=== PATIENT | male | born 1965 ===

== ENCOUNTER 2017-02-10 13:42 | Inpatient (IN) | payer OTHER ==
[2017-02-10] MEDS ORDERED: Sodium Chloride 0.9% 500 ML IV ONE (14:12)
[2017-02-10] MEDS ORDERED: Sodium Chloride 0.9% 1,000 ML ONE (14:20)
[2017-02-10 14:48] LABS: BASO # 0.1 K/uL (0.0-0.2); BASO % 0.8 % (0.0-2.0); EOS # 0.1 K/uL (0.0-0.7); EOS % 1.4 % (0.0-4.0); HEMATOCRIT 41.7 % (35.0-51.0); LYMPH # 2.2 K/uL (1.0-4.3); LYMPH % 28.1 % (20.0-40.0); MEAN CELL VOLUME 88.3 fL (80.0-94.0); MEAN CORPUSCULAR HEMOGLOBIN 31.4 pg (27.0-31.0); MEAN CORPUSCULAR HGB CONC 35.6 g/dL (33.0-37.0); MEAN PLATELET VOLUME 9.6 fL (7.2-11.7); MONO # 0.5 K/uL (0.0-0.8); NRBC % 0.1 % (0.0-2.0)
[2017-02-10 14:59] LABS: CHLORIDE 97 mmol/L (98-107)
[2017-02-10 15:00] LABS: POTASSIUM 4.2 mmol/L (3.6-5.2); SODIUM 135 mmol/L (132-148)
[2017-02-10 15:02] LABS: ALB/GLOB RATIO 1.4 (1.0-2.1); ALKALINE PHOSPHATASE 160 U/L (38-126); ALT/SGPT 28 U/L (21-72); AST/SGOT 40 U/L (17-59); BILIRUBIN,TOTAL 1.2 mg/dL (0.2-1.3); BLOOD UREA NITROGEN 17 mg/dL (9-20); CARBON DIOXIDE 26 mmol/L (22-30); GFR AFRICAN-AMERICAN > 60; TOTAL PROTEIN 7.6 g/dL (6.3-8.3)
--- NOTE | 2017-02-10 15:02 | CT ---
PROCEDURE: CT HEAD WITHOUT CONTRAST. HISTORY: Dizziness COMPARISON: None available. TECHNIQUE: Axial computed tomography images were obtained through the head/brain without intravenous contrast. Radiation dose: Total exam DLP = 967.06 mGy-cm. This CT exam was performed using one or more of the following dose reduction techniques: Automated exposure control, adjustment of the mA and/or kV according to patient size, and/or use of iterative reconstruction technique. FINDINGS: HEMORRHAGE: No intracranial hemorrhage. BRAIN: No mass effect or edema. Evidence of old right occipital infarct. Small encephalomalacia ruffin region in the right parietal lobe the sequela of old infarction. VENTRICLES: Unremarkable. No hydrocephalus. CALVARIUM: Unremarkable. PARANASAL SINUSES: Unremarkable as visualized. No significant inflammatory changes. MASTOID AIR CELLS: Unremarkable as visualized. No inflammatory changes. OTHER FINDINGS: None. IMPRESSION: No acute intracranial abnormalities. No significant findings to account for the clinical presentation. 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
[2017-02-10 15:03] LABS: CALCIUM 8.6 mg/dl (8.6-10.4); GLUCOSE,RANDOM 366 mg/dL (75-110)
[2017-02-10] MEDS ORDERED: Aspirin 325 mg EC Tablets PO STA (15:38)
--- NOTE | 2017-02-10 16:02 | C.PDOC ---
Time Seen by Provider: 02/10/17 13:56 Chief Complaint (Nursing): Dizziness/Lightheaded History Per: Patient Onset/Duration Of Symptoms: Days (2-3) Current Symptoms Are (Timing): Still Present Fall Associated With With Symptoms: No Severity: Moderate Additional History Per: Prior Records - Symptoms Of CVA Associated Symptoms: Decreased Ability To Walk Character Of Deficits: Left: Sensory Loss (?), Arm: Sensory Loss Recent Aspirin Use: No Current Coumadin Use?: No Recent Head Trauma: No Past Medical History Reviewed: Historical Data, Nursing Documentation, Vital Signs Vital Signs: Last Vital Signs Temp 98.2 F 02/10/17 13:46 Pulse 69 02/10/17 13:46 Resp 20 02/10/17 13:46 BP 153/74 H 02/10/17 13:46 Pulse Ox 98 02/10/17 16:02 - Medical History PMH: Diabetes, HTN, Hypercholesterolemia Surgical History: No Surg Hx Family History: States: Unknown Family Hx - Social History Hx Alcohol Use: Yes Hx Substance Use: No Review Of Systems Except As Marked, All Systems Reviewed And Found Negative. Constitutional: Negative for: Fever, Weakness Eyes: Positive for: Vision Change (?) Cardiovascular: Negative for: Chest Pain Respiratory: Negative for: Shortness of Breath Gastrointestinal: Negative for: Vomiting, Abdominal Pain Musculoskeletal: Negative for: Neck Pain, Back Pain Skin: Negative for: Rash Neurological: Positive for: Incoordination, Headache, Dizziness. Negative for: Change in Speech, Seizures, Altered Mental Status Physical Exam - Physical Exam Appears: Non-toxic, No Acute Distress Skin: Normal Color, Warm, Dry, No Rash Head: Atraumatic, Normacephalic Eye(s): bilateral: PERRL, EOMI Ear(s): Bilateral: Normal Neck: Normal ROM, Supple Cardiovascular: Rhythm Regular Respiratory: Normal Breath Sounds, No Accessory Muscle Use Gastrointestinal/Abdominal: Soft, No Tenderness Extremity: Normal ROM Neurological/Psych: Oriented x3, Normal Speech, Normal Cognition, Normal Motor, No Normal Sensation (decreased sensation in LUE compared to right) Gait: Unsteady ED Course And Treatment - Laboratory Results Result Diagrams: 02/10/17 14:33 02/10/17 14:33 ECG: Interpreted By Me, Viewed By Me ECG Rhythm: Sinus Rhythm ECG Interpretation: No Acute Changes Rate From EC O2 Sat by Pulse Oximetry: 98 Pulse Ox Interpretation: Normal - CT Scan/US CT head Other Rad Studies (CT/US): Read By Radiologist, Radiology Report Reviewed CT/US Interpretation: IMPRESSION: No acute intracranial abnormalities. No significant findings to account for the clinical presentation. 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 - Physician Consult Information Physician Contacted: Abelardo Ventura (Neuro) Outcome Of Conversation: He wants pt to be admitted to the hospital for further evaluation and treatment. NIHSS Stroke Scale - Date/Time Evaluation Performed Date Performed: 02/10/17 When Was NIHSS Performed: Baseline - How Severe is the Stoke Level of Consciousness: 0=Alert LOC to Questions: 0=Both comments correct Best Gaze: 0=Normal Visual: 0=No visual loss Facial: 0=Normal Motor Arm - Left: 0=No drift Motor Arm - Right: 0=No drift Motor Leg - Left: 0=No drift Motor Leg - Right: 0=No drift Limb Ataxia: 0=Absent Sensory: 1=Mild to moderate loss Best Language: 0=No aphasia Dysarthia: 0=Normal articulation Extinction & Inattention (Neglect): 0=Normal, no object Severity Of Stroke: 1-4= Minor Stroke Progress - Interventions Interventions:: Observation, Intravenous fluid - Medications Administered Oral: Aspirin, Other (Meclizine) - Data Reviewed Data Reviewed: Lab, Diagnostic imaging, EKG, Old records - Patient Status Patient status: Partially improved - Continuity of Care Discussed patient case with:: Patient, ED Nurse, On-call PMD-pt unassigned Discussed pt. case with [facility] consultant/specialty: Neurology - Patient Plan Patient Plan: Admission, Telemetry rTPA Inclusion/Exclusion - Inclusion Criteria for Altepase Patient is 18 years or Older: Yes The Clinical Diagnosis of Ischemic Stroke That is Causing a Potentially Disabling Neurological Deficit: Yes Time of Onset is Well Established to be Less Than 270 Minute Before Treatment Would Begin: No Risk/Benefit Discussed With Patient/Family Member Present: No Disposition Discussed With : Chandu Metz Comment: He accepted pt on hospitalist service. Doctor Will See Patient In The: Hospital Counseled Patient/Family Regarding: Studies Performed, Diagnosis - Disposition Disposition: HOSPITALIZED Disposition Time: 16:15 Condition: FAIR - Clinical Impression Clinical Impression: Occipital infarction, Infarction of parietal lobe
[2017-02-10 16:08] LABS: CHOLESTEROL 218 mg/dL (0-199)
--- NOTE | 2017-02-10 16:20 | CP.PCM.HP ---
<Jaclyn Wallis - Last Filed: 02/10/17 18:12> History of Present Illness - History of Present Illness History of Present Illness: CC: I'm losing my mind HPI: 51M with PMHx HTN, DM, hyperlipidemia presenting with unsteadiness and difficulty coordinating for 3 days. Patient states that these symptoms began randomly and he noticed it especially when driving or trying to lift something from the floor. When driving he would notice that when trying to turn on the blinker he would have a difficult time differentiating how to turn on left and right turn signals and when trying to lift objects from the floor he would often miss. He stated nothing made this better/worse. He denied any falls but reported feeling dizzy at times. He also reported one episode when he had a headache that was located on the top of his head and rated 5/10 which was intermittent. He denied any confusion but felt like his head was in the clouds. This is the first time he had such a sequale of symptoms. Patient also denied weakness, chest pain, palpitations, SOB, cough, abdominal pain, nausea, vomiting , bowel/bladder complaints, pain/swelling in legs b/l. He denied travel history and sick contacts. PMHx: HTN, DM2, hyperlipidemia PSHx: denies Meds: doesn't know meds Allergies: NKDA Soc Hx: denies tobacco abuse and drug abuse. Drinks occassionally socially. 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 FamHx: mother CVA. No heart disease/cancer in family ROS: admits to headache, dizziness. denies chest pain, palpitations, SOB, cough , abdominal pain, nausea, vomiting, bowel/bladder complaints, pain/swelling in legs b/l Present on Admission - Present on Admission Any Indicators Present on Admission: No Review of Systems - Constitutional Constitutional: As Per HPI. absent: Chills, Fever, Weakness - EENT Eyes: As Per HPI. absent: Change in Vision Ears: As Per HPI, Disequilibrium, Dizziness. absent: Tinnitus Nose/Mouth/Throat: As Per HPI. absent: Dysphagia, Sore Throat - Cardiovascular Cardiovascular: As Per HPI. absent: Chest Pain, Dyspnea, Edema, Palpitations - Respiratory Respiratory: As Per HPI. absent: Cough, Dyspnea on Exertion, Wheezing, Chest Congestion - Gastrointestinal Gastrointestinal: As Per HPI. absent: Abdominal Pain, Constipation, Diarrhea, Nausea, Vomiting - Genitourinary Genitourinary: As Per HPI. absent: Dysuria, Hematuria, Pyuria - Musculoskeletal Musculoskeletal: As Per HPI. absent: Numbness, Tingling - Integumentary Integumentary: As Per HPI. absent: Rash - Neurological Neurological: As Per HPI, Abnormal Gait, Disequilibrium, Dizziness, Headaches, Lack of Coordination. absent: Abnormal Hearing, Abnormal Movements, Abnormal Speech, Burning Sensations, Confusion, Numbness, Focal Weakness, Frequent Falls , Loss of Vision, Syncope, Tingling, Weakness, Other Visual Disturbances - Psychiatric Psychiatric: As Per HPI. absent: Anxiety, Depression - Endocrine Endocrine: As Per HPI. absent: Palpitations, Polydipsia, Polyphagia, Polyuria - Hematologic/Lymphatic Hematologic: As Per HPI. absent: Easy Bleeding, Easy Bruising, Lymphadenopathy Past Patient History - Past Social History Smoking Status: Never Smoked - CARDIAC Hx Hypercholesterolemia: Yes Hx Hypertension: Yes - ENDOCRINE/METABOLIC Hx Diabetes Mellitus Type 2: Yes - PSYCHIATRIC Hx Substance Use: No Meds Allergies/Adverse Reactions: Allergies Allergy/AdvReac Type Severity Reaction Status Date / Time No Known Allergies Allergy Unverified 02/10/17 13:48 Physical Exam - Constitutional Appears: Non-toxic, No Acute Distress - Head Exam Head Exam: ATRAUMATIC, NORMAL INSPECTION, NORMOCEPHALIC - Eye Exam Eye Exam: EOMI, Normal appearance, PERRL. absent: Conjunctival injection, Scleral icterus Pupil Exam: NORMAL ACCOMODATION - ENT Exam ENT Exam: Mucous Membranes Moist - Neck Exam Neck exam: Positive for: Full Rom, Normal Inspection. Negative for: Lymphadenopathy, Tenderness, Thyromegaly - Respiratory Exam Respiratory Exam: Clear to Auscultation Bilateral, NORMAL BREATHING PATTERN. absent: Accessory Muscle Use, Rales, Rhonchi, Wheezes, Respiratory Distress - Cardiovascular Exam Cardiovascular Exam: REGULAR RHYTHM, RRR, +S1, +S2. absent: Systolic Murmur - GI/Abdominal Exam GI & Abdominal Exam: Normal Bowel Sounds, Soft. absent: Firm, Guarding, Rigid, Tenderness - Rectal Exam Rectal Exam: Deferred - Extremities Exam Extremities exam: Positive for: normal capillary refill, normal inspection, pedal pulses present. Negative for: pedal edema, tenderness - Back Exam Back exam: NORMAL INSPECTION. absent: paraspinal tenderness, rash noted - Neurological Exam Neurological exam: Alert, CN II-XII Intact, Oriented x3 - Psychiatric Exam Psychiatric exam: Normal Affect, Normal Mood - Skin Skin Exam: Dry, Intact, Normal Color, Warm Results - Vital Signs Recent Vital Signs: Last Vital Signs Temp 98.2 F 02/10/17 13:46 Pulse 69 02/10/17 13:46 Resp 20 02/10/17 13:46 BP 153/74 H 02/10/17 13:46 Pulse Ox 98 02/10/17 16:17 - Labs Result Diagrams: 02/10/17 14:33 02/10/17 14:33 Labs: Laboratory Results - last 24 hr 02/10/17 02/10/17 02/10/17 14:33 14:33 15:53 WBC 8.0 RBC 4.72 Hgb 14.8 Hct 41.7 MCV 88.3 MCH 31.4 H MCHC 35.6 RDW 12.0 Plt Count 223 MPV 9.6 Neut % (Auto) 63.7 Lymph % (Auto) 28.1 [place] % (Auto) 6.0 Eos % (Auto) 1.4 Baso % (Auto) 0.8 Neut # 5.1 Lymph # 2.2 [place] # 0.5 Eos # 0.1 Baso # 0.1 PT 11.7 INR 1.0 APTT 28 Sodium 135 Potassium 4.2 Chloride 97 L Carbon Dioxide 26 Anion Gap 16 BUN 17 Creatinine 0.7 L Est GFR ( Amer) > 60 Est GFR (Non-Af Amer) > 60 Random Glucose 366 H Calcium 8.6 Total Bilirubin 1.2 AST 40 ALT 28 Alkaline Phosphatase 160 H Troponin I 0.0200 Total Protein 7.6 Albumin 4.5 Globulin 3.2 Albumin/Globulin Ratio 1.4 Triglycerides Cholesterol HDL Cholesterol 02/10/17 15:53 WBC RBC Hgb Hct MCV MCH MCHC RDW Plt Count MPV Neut % (Auto) Lymph % (Auto) [place] % (Auto) Eos % (Auto) Baso % (Auto) Neut # Lymph # [place] # Eos # Baso # PT INR APTT Sodium Potassium Chloride Carbon Dioxide Anion Gap BUN Creatinine Est GFR ( Amer) Est GFR (Non-Af Amer) Random Glucose Calcium Total Bilirubin AST ALT Alkaline Phosphatase Troponin I Total Protein Albumin Globulin Albumin/Globulin Ratio Triglycerides 254 H Cholesterol 218 H HDL Cholesterol 47 Assessment & Plan - Assessment and Plan (Free Text) Assessment: 51 year [facility], DM, hypercholesterolemia presents with unsteadiness for 3 days Plan: Acute vs subacute CVA -Likely Ischemic stroke likely secondary to emboli -TELE admission -CT head: no acute intracranial abnl; no significant findings to account for clinical presentation; old infarcts R occipital lobe, R parietal lobe -ASA 81mg po daily -Crestor 10mg po hs -f/u Echo with bubble study -f/u MRI brain w/o contrast -f/u MRA head/neck w/o contrast -PT/OT -Neuro checks -Fall Risk -Heart healthy diet -Dr. Ventura neurology on board Hx of HTN -hold meds for now -Monitor Hx of DM -Accucheck -RISS Hx of Hypercholesterolemia -Crestor 10mg po hs PPX -Pepcid 20mg po bid -Heparin 5000U SC q12 -SCDs -PT/OT -Neuro checks -Fall Risk -Heart healthy diet Plan discussed with Dr. Dalton Wallis PGY1 <Gladis Hoffman V - Last Filed: 02/10/17 20:34> Results - Vital Signs Recent Vital Signs: Last Vital Signs Temp 98.7 F 02/10/17 18:40 Pulse 67 02/10/17 18:40 Resp 20 02/10/17 18:40 BP 147/93 H 02/10/17 18:40 Pulse Ox 98 02/10/17 18:40 - Labs Result Diagrams: 02/10/17 14:33 02/10/17 14:33 Attending/Attestation - Attestation I have personally seen and examined this patient.: Yes I have fully participated in the care of the patient.: Yes I have reviewed all pertinent clinical information: Yes Notes (Text): Patient seen, examined, and case discussed with day-time resident in [facility] Bed 9 accompanied by friend, patient permits to talk about his medical history in front of his friend. patient reports 3 days ago, he noticed something wrong with his hand. 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 Patient denies dropping items. Patient also reports headache about two days ago, which prompted him to take a Advil. Patient reports he comes now to the hospital but he was working before. Patient denies facial weakness, slurring speech, denies weakness, denies numbness, denies tingling, denies bowel/bladder incontinence. Neurology (Dr. Ventura) on case-->help appreciated Cardiology (Dr. Wise) on case-->further recommendations Will order for hypercoaguabity workup Monitor on telemetry Patient received Aspirin 325mg PO in the Ed. Assessment/Plan 1) CVA -Likely Ischemic stroke likely secondary to emboli -TELE admission -CT head: no acute intracranial abnl; no significant findings to account for clinical presentation; old infarcts R occipital lobe, R parietal lobe -ASA 81mg po daily -Crestor 10mg po hs -f/u Echo with bubble study -f/u MRI brain w/o contrast -f/u MRA head/neck w/o contrast -PT/OT eval -Neuro checks -Fall Risk -Heart healthy diet -Dr. Ventura neurology on board-->help appreciated -Dr. Wise cardiology on board-->help appreciated -JED and EKGs ordered 2) Hypertension -Lisinopril 5mg PO daily -Monitor 3)Diabetes type 2 -Accuchecks QAC and HS -RISS -hgba1c, and Lipid panel 4) Hx of Hypercholesterolemia -Crestor 10mg po hs -lipid panel 5) PPX -Pepcid 20mg po bid -Heparin 5000U SC q12 -SCDs -PT/OT eval -Neuro checks -Fall Risk -Heart healthy diet
--- NOTE | 2017-02-10 16:41 | CP.PCM.CON ---
History of Present Illness - History of Present Illness History of Present Illness: Mr. Rivas is a 51-year-old man with a past medical history of DM, HTN, who states that for the last several days he has been feeling more unsteady and some difficulty with coordination. He denies headache, nausea, visual changes, other weakness or sensory changes. He does not have any dizziness or vertigo and has not had any recent illnesses. Review of Systems - Review of Systems All systems: reviewed and no additional remarkable complaints except Past Patient History - Past Social History Smoking Status: Never Smoked - CARDIAC Hx Hypercholesterolemia: Yes Hx Hypertension: Yes - ENDOCRINE/METABOLIC Hx Diabetes Mellitus Type 2: Yes - PSYCHIATRIC Hx Substance Use: No Meds Allergies/Adverse Reactions: Allergies Allergy/AdvReac Type Severity Reaction Status Date / Time No Known Allergies Allergy Unverified 02/10/17 13:48 Physical Exam - Constitutional Appears: Well - Head Exam Head Exam: ATRAUMATIC, NORMAL INSPECTION, NORMOCEPHALIC - Eye Exam Eye Exam: EOMI, Normal appearance, PERRL - ENT Exam ENT Exam: Mucous Membranes Moist, Normal Exam - Neck Exam Neck exam: Positive for: Normal Inspection - Respiratory Exam Respiratory Exam: Clear to Auscultation Bilateral, NORMAL BREATHING PATTERN - Cardiovascular Exam Cardiovascular Exam: REGULAR RHYTHM, +S1, +S2 - GI/Abdominal Exam GI & Abdominal Exam: Normal Bowel Sounds, Soft. absent: Tenderness - Neurological Exam Neurological exam: Alert, CN II-XII Intact, Normal Gait, Oriented x3, Reflexes Normal - Expanded Neurological Exam Expanded Patient oriented to: person, place, time Cranial nerves: EOM's Intact: Normal, Nystagmus: Normal Cerebellar Function: Finger to Nose: Abnormal Right, Heel to [place]: Abnormal Right Upper motor neuron: Babinski Sign: Normal Sensory exam: Lower Extremity Light Touch: Normal, Lower Extremity Pin Prick: Normal, Upper Extremity Light Touch: Normal, Upper Extremity Pin Prick: Normal Neuro motor strength exam: Left Upper Extremity: 5, Right Upper Extremity: 5, Left Lower Extremity: 5, Right Lower Extremity: 5 DTR: Bicep Left: 3+, Bicep Right: 2+, Brachioradialis Left: 3+, Brachioradialis Right: 2+, Patellar Left: 3+, Patellar Right: 2+ - Psychiatric Exam Psychiatric exam: Normal Affect, Normal Mood - Skin Skin Exam: Dry, Intact, Normal Color, Warm Results - Vital Signs Recent Vital Signs: Last Vital Signs Temp 98.2 F 02/10/17 13:46 Pulse 69 02/10/17 13:46 Resp 20 02/10/17 13:46 BP 153/74 H 02/10/17 13:46 Pulse Ox 98 02/10/17 16:17 - Labs Result Diagrams: 02/10/17 14:33 02/10/17 14:33 - Imaging and Cardiology CT scan - head Status: Image reviewed by me, Report reviewed by me (Chronic right occipital and parietal infarcts. Parts of the parietal infarct appear to be slightly more recent than the occipital region, but it is diffuclt to determine. There is also a chronic left cerebellar.) Assessment & Plan (1) Ischemic stroke Assessment and Plan: Based on the history and CT findings, the patient has likely had infarcts at different times. The plan is to admit the patient and complete a work-up and treatment for stroke. Start aspirin 81 mg daily, lipid panel and start high dose statin to maintain LDL<100, MRI brain without contrast MRA head/neck without contrast, echocardiogram with bubble study, telemetry, PT/OT, DVT Px. Status: Acute Priority: High
[2017-02-10] MEDS: (Novolog) Insulin Aspart, Recombinant 100 u/ml 10 ml vial SC SCH (22:00)
--- NOTE | 2017-02-11 06:54 | CP.PCM.CON ---
History of Present Illness - History of Present Illness History of Present Illness: Pt with chest discomfort bp elevated no sob Past Patient History - Past Social History Smoking Status: Never Smoked - CARDIAC Hx Hypercholesterolemia: Yes Hx Hypertension: Yes - ENDOCRINE/METABOLIC Hx Diabetes Mellitus Type 2: Yes - MUSCULOSKELETAL/RHEUMATOLOGICAL Hx Falls: No - PSYCHIATRIC Hx Substance Use: No Meds Home Medications: Home Medication List Medication Instructions Recorded Confirmed Type Aspirin [Aspirin Chewable] 81 mg PO DAILY #30 02/14/17 Rx Lisinopril [Zestril] 5 mg PO DAILY #30 tab 02/14/17 Rx MetFORMIN [glucoPHAGE] 1,000 mg PO BID #60 tab 02/14/17 Rx Rosuvastatin Calcium [Crestor] 40 mg PO HS #30 tab 02/14/17 Rx glyBURIDE [Micronase] 2.5 mg PO DAILY #30 tab 02/14/17 Rx Allergies/Adverse Reactions: Allergies Allergy/AdvReac Type Severity Reaction Status Date / Time No Known Allergies Allergy Unverified 02/10/17 13:48 - Medications Medications: Current Medications Aspirin (Aspirin Chewable) 81 mg PO DAILY [facility] Famotidine (Pepcid) 20 mg PO BID [facility] Last Admin: 02/10/17 18:33 Dose: 20 mg Heparin Sodium (Porcine) (Heparin) 5,000 units SC Q12 [facility] Last Admin: 02/10/17 21:22 Dose: 5,000 units Insulin Aspart (Novolog) 0 unit SC ACHS [facility] PRN Reason: Protocol Last Admin: 02/10/17 22:00 Dose: Not Given Lisinopril (Zestril) 5 mg PO DAILY [facility] Rosuvastatin Calcium (Crestor) 10 mg PO HS [facility] Last Admin: 02/10/17 21:21 Dose: 10 mg Results - Vital Signs Recent Vital Signs: Last Vital Signs Temp 97.5 F L 02/10/17 23:25 Pulse 60 02/11/17 02:31 Resp 20 02/10/17 23:25 BP 124/76 02/10/17 23:25 Pulse Ox 96 02/10/17 23:25 - Labs Result Diagrams: 02/14/17 07:58 02/14/17 07:58 Labs: Laboratory Results - last 24 hr 02/10/17 02/10/17 02/10/17 18:31 21:00 21:10 POC Glucose (mg/dL) 277 H 329 H Total Creatine Kinase 73 CK-MB (Mass) 0.75 Troponin I, Quant 0.0190 02/11/17 02/11/17 02:13 06:14 POC Glucose (mg/dL) 244 H Total Creatine Kinase 75 CK-MB (Mass) 0.72 Troponin I, Quant 0.0290 Assessment & Plan (1) CVA (cerebral vascular accident) Assessment and Plan: neuro follow cva bp control Status: Acute (2) HTN (hypertension) Status: Chronic
[2017-02-11 07:58] LABS: CHLORIDE 99 mmol/L (98-107); SODIUM 135 mmol/L (132-148)
[2017-02-11 07:59] LABS: POTASSIUM 4.1 mmol/L (3.6-5.2)
[2017-02-11 08:00] LABS: BILIRUBIN,TOTAL 1.3 mg/dL (0.2-1.3); GFR AFRICAN-AMERICAN > 60
[2017-02-11 08:01] LABS: ALB/GLOB RATIO 1.2 (1.0-2.1); ALKALINE PHOSPHATASE 130 U/L (38-126); ALT/SGPT 25 U/L (21-72); AST/SGOT 35 U/L (17-59); BASO # 0.1 K/uL (0.0-0.2); BASO % 1.1 % (0.0-2.0); BLOOD UREA NITROGEN 17 mg/dL (9-20); CARBON DIOXIDE 24 mmol/L (22-30); EOS # 0.4 K/uL (0.0-0.7); EOS % 5.6 % (0.0-4.0); GLUCOSE,RANDOM 243 mg/dL (75-110); HEMATOCRIT 41.1 % (35.0-51.0); LYMPH # 2.1 K/uL (1.0-4.3); LYMPH % 33.4 % (20.0-40.0); MEAN CELL VOLUME 88.4 fL (80.0-94.0); MEAN CORPUSCULAR HEMOGLOBIN 31.1 pg (27.0-31.0); MEAN CORPUSCULAR HGB CONC 35.2 g/dL (33.0-37.0); MEAN PLATELET VOLUME 9.7 fL (7.2-11.7); MONO # 0.5 K/uL (0.0-0.8); MONO % 7.2 % (0.0-10.0); PHOSPHOROUS 3.4 mg/dL (2.5-4.5); RED CELL DISTRIBUTION WIDTH 12.3 % (11.5-14.5); TOTAL PROTEIN 7.1 g/dL (6.3-8.3); WHITE BLOOD COUNT 6.4 K/uL (4.8-10.8)
[2017-02-11 08:02] LABS: CALCIUM 8.4 mg/dl (8.6-10.4); MAGNESIUM 1.8 mg/dL (1.6-2.3)
--- NOTE | 2017-02-11 08:03 | CP.PCM.PN ---
<Jaclyn Wallis - Last Filed: 02/11/17 12:23> Subjective - Date & Time of Evaluation Date of Evaluation: 02/11/17 Time of Evaluation: 07:00 - Subjective Subjective: PGY1 Medicine note for Dr. Hoffman Patient seen and examined at bedside. Patient denied any complaints overnight and nursing reported to adverse events overnight. He stated he felt better than day of admission. Patient denied blurry vision, headache, dizziness, chest pain , palpitations, SOB, cough, abdominal pain, nausea, vomiting, bowel/bladder complaints, pain/swelling in his legs bilaterally. He reports he is able to ambulate to and from the bathroom without difficulty and denies any problems with coordination. Patient is eating well. Objective - Vital Signs/Intake and Output Vital Signs (last 24 hours): Temp Pulse Resp BP Pulse Ox 97.5 F L 60 20 124/76 96 02/10/17 23:25 02/11/17 02:31 02/10/17 23:25 02/10/17 23:25 02/10/17 23:25 - Medications Medications: Current Medications Aspirin (Aspirin Chewable) 81 mg PO DAILY [facility] Famotidine (Pepcid) 20 mg PO BID [facility] Last Admin: 02/10/17 18:33 Dose: 20 mg Heparin Sodium (Porcine) (Heparin) 5,000 units SC Q12 [facility] Last Admin: 02/10/17 21:22 Dose: 5,000 units Insulin Aspart (Novolog) 0 unit SC ACHS [facility] PRN Reason: Protocol Last Admin: 02/10/17 22:00 Dose: Not Given Lisinopril (Zestril) 5 mg PO DAILY [facility] Rosuvastatin Calcium (Crestor) 10 mg PO HS [facility] Last Admin: 02/10/17 21:21 Dose: 10 mg - Labs Labs: 02/11/17 07:24 PT 11.7 SECONDS (9.7-12.2) 02/10/17 15:53 INR 1.0 02/10/17 15:53 APTT 28 SECONDS (21-34) 02/10/17 15:53 - Constitutional Appears: Non-toxic, No Acute Distress - Head Exam Head Exam: ATRAUMATIC, NORMAL INSPECTION, NORMOCEPHALIC - Eye Exam Eye Exam: Normal appearance. absent: Conjunctival injection, Scleral icterus - ENT Exam ENT Exam: Mucous Membranes Moist - Neck Exam Neck Exam: Full ROM, Normal Inspection. absent: Tenderness - Respiratory Exam Respiratory Exam: Clear to Ausculation Bilateral, NORMAL BREATHING PATTERN. absent: Accessory Muscle Use, Rales, Rhonchi, Wheezes, Respiratory Distress - Cardiovascular Exam Cardiovascular Exam: REGULAR RHYTHM, RRR, +S1, +S2. absent: Murmur - GI/Abdominal Exam GI & Abdominal Exam: Soft, Normal Bowel Sounds. absent: Firm, Guarding, Rigid, Tenderness - Extremities Exam Extremities Exam: Normal Capillary Refill, Normal Inspection. absent: Pedal Edema, Tenderness - Back Exam Back Exam: NORMAL INSPECTION. absent: rash noted, tenderness - Neurological Exam Neurological Exam: Alert, Awake, CN II-XII Intact, Normal Gait, Oriented x3 - Psychiatric Exam Psychiatric exam: Normal Affect, Normal Mood - Skin Skin Exam: Dry, Intact, Normal Color, Warm Assessment and Plan - Assessment and Plan (Free Text) Assessment: 51 year old male PMHx HTN, DM, hypercholesterolemia presents with unsteadiness for 3 days Plan: 1) CVA -Likely Ischemic stroke likely secondary to emboli -TELE admission -CT head: no acute intracranial abnl; no significant findings to account for clinical presentation; old infarcts R occipital lobe, R parietal lobe -ASA 81mg po daily -Crestor 10mg po hs -f/u Echo with bubble study -f/u MRI brain w/o contrast -f/u MRA head/neck w/o contrast -PT/OT -Neuro checks -Fall Risk -Heart healthy diet -Dr. Ventura neurology on board -Dr. Wise cardiology on board -JED and EKGs ordered 2) Hypertension -Lisinopril 5mg PO daily -Monitor 3)Diabetes type 2 -Accuchecks ACHS -RISS -f/u HgbA1c 4) Hx of Hypercholesterolemia -Crestor 10mg po hs -T -Cholesterol: 218 -LDL: 154 -HDL: 47 5) PPX -Pepcid 20mg po bid -Heparin 5000U SC q12 -SCDs -PT/OT eval -Neuro checks -Fall Risk -Heart healthy diet Plan discussed with Dr. Dalton Wallis PGY1 <Gladis Hoffman V - Last Filed: 02/11/17 23:15> Objective - Vital Signs/Intake and Output Vital Signs (last 24 hours): Temp Pulse Resp BP Pulse Ox 98 F 71 20 127/79 97 02/11/17 15:03 02/11/17 15:03 02/11/17 15:03 02/11/17 15:03 02/11/17 15:03 - Medications Medications: Current Medications Aspirin (Aspirin Chewable) 81 mg PO DAILY [facility] Last Admin: 02/11/17 11:26 Dose: 81 mg Famotidine (Pepcid) 20 mg PO BID [facility] Last Admin: 02/11/17 17:34 Dose: 20 mg Heparin Sodium (Porcine) (Heparin) 5,000 units SC Q12 [facility] Last Admin: 02/11/17 21:43 Dose: 5,000 units Insulin Aspart (Novolog) 0 unit SC ACHS [facility] PRN Reason: Protocol Last Admin: 02/11/17 21:45 Dose: Not Given Lisinopril (Zestril) 5 mg PO DAILY [facility] Last Admin: 02/11/17 10:37 Dose: 5 mg Rosuvastatin Calcium (Crestor) 10 mg PO HS [facility] Last Admin: 02/11/17 21:42 Dose: 10 mg - Labs Labs: 02/11/17 07:24 02/11/17 07:24 PT 11.7 SECONDS (9.7-12.2) 02/10/17 15:53 INR 1.0 02/10/17 15:53 APTT 28 SECONDS (21-34) 02/10/17 15:53 Attending/Attestation - Attestation I have personally seen and examined this patient.: Yes I have fully participated in the care of the patient.: Yes I have reviewed all pertinent clinical information, including history, physical exam and plan: Yes Notes (Text): Patient seen, examined and case discussed with day-time resident. Patient reports he keeps missing his intended object when he tries to burr picker. Patient denies other acute complaints. Patient awaiting workup including MRIs/ echo. Pending hypercoagability workup. Cardiology seen patient today. Assessment/Plan 1) CVA -Likely Ischemic stroke likely secondary to emboli -TELE admission -CT head: no acute intracranial abnl; no significant findings to account for clinical presentation; old infarcts R occipital lobe, R parietal lobe -ASA 81mg po daily -Crestor 10mg po hs -f/u Echo with bubble study -f/u MRI brain w/o contrast -f/u MRA head/neck w/o contrast -PT/OT eval -Neuro checks -Fall Risk -Heart healthy diet -Dr. Ventura neurology on board-->help appreciated -Dr. Wise cardiology on board-->help appreciated -JED and EKGs ordered 2) Hypertension -Lisinopril 5mg PO daily -Monitor 3)Diabetes type 2 -Accuchecks QAC and HS -RISS -hgba1c, and Lipid panel 4) Hx of Hypercholesterolemia -Crestor 10mg po hs -lipid panel 5) PPX -Pepcid 20mg po bid -Heparin 5000U SC q12 -SCDs -PT/OT eval -Neuro checks -Fall Risk -Heart healthy diet
[2017-02-11] MEDS: (Novolog) Insulin Aspart, Recombinant 100 u/ml 10 ml vial SC SCH ×4 (08:13→21:45)
--- NOTE | 2017-02-12 04:44 | CP.PCM.PN ---
<Patrick Davies - Last Filed: 02/12/17 04:41> Subjective - Date & Time of Evaluation Date of Evaluation: 02/12/17 Time of Evaluation: 04:40 - Subjective Subjective: PGY1 Medicine note for Dr. Hoffman Patient seen and examined at bedside. Nursing reports no acute events overnight. He admits he feels better since admission, but is frustrated that he is unable to pickup objects when he tries due to "lack of coordination." Patient denied blurry vision, headache, dizziness, chest pain, palpitations, SOB , cough, abdominal pain, nausea, vomiting, bowel/bladder complaints, pain/ swelling in his legs bilaterally. Pt reports "slight unsteadiness" on his feet but admits being able to walk slowly without issue. Patient reports tolerating diet, urinating, and moving bowels without difficulty. Objective - Vital Signs/Intake and Output Vital Signs (last 24 hours): Temp Pulse Resp BP Pulse Ox 97.9 F 63 20 140/96 H 100 02/11/17 23:40 02/12/17 00:18 02/11/17 23:40 02/12/17 04:10 02/11/17 23:40 - Medications Medications: Current Medications Aspirin (Aspirin Chewable) 81 mg PO DAILY [facility] Last Admin: 02/11/17 11:26 Dose: 81 mg Famotidine (Pepcid) 20 mg PO BID [facility] Last Admin: 02/11/17 17:34 Dose: 20 mg Heparin Sodium (Porcine) (Heparin) 5,000 units SC Q12 [facility] Last Admin: 02/11/17 21:43 Dose: 5,000 units Insulin Aspart (Novolog) 0 unit SC ACHS [facility] PRN Reason: Protocol Last Admin: 02/11/17 21:45 Dose: Not Given Lisinopril (Zestril) 5 mg PO DAILY [facility] Last Admin: 02/11/17 10:37 Dose: 5 mg Rosuvastatin Calcium (Crestor) 10 mg PO HS [facility] Last Admin: 02/11/17 21:42 Dose: 10 mg - Labs Labs: 02/11/17 07:24 02/11/17 07:24 PT 11.7 SECONDS (9.7-12.2) 02/10/17 15:53 INR 1.0 02/10/17 15:53 APTT 28 SECONDS (21-34) 02/10/17 15:53 - Constitutional Appears: Non-toxic, No Acute Distress - Head Exam Head Exam: NORMAL INSPECTION - Eye Exam Eye Exam: EOMI Pupil Exam: PERRL - ENT Exam ENT Exam: Mucous Membranes Moist - Respiratory Exam Respiratory Exam: Clear to Ausculation Bilateral, NORMAL BREATHING PATTERN - Cardiovascular Exam Cardiovascular Exam: REGULAR RHYTHM, +S1, +S2 - GI/Abdominal Exam GI & Abdominal Exam: Soft, Normal Bowel Sounds. absent: Tenderness - Extremities Exam Extremities Exam: Normal Capillary Refill, Normal Inspection - Neurological Exam Neurological Exam: Alert, Awake, Oriented x3 Neuro motor strength exam: Left Upper Extremity: 5, Right Upper Extremity: 5, Left Lower Extremity: 5, Right Lower Extremity: 5 Additional comments: Finger to nose: slow, and abnormal bilateral; Heel to hooper abnormal on right side Pt unable to follow H in space for CN 3,4,6 testing light touch intact in UE and LE b/l Pt oriented AOx3 - Psychiatric Exam Psychiatric exam: Normal Affect - Skin Skin Exam: Normal Color, Warm Assessment and Plan - Assessment and Plan (Free Text) Assessment: 51 year old male PMHx HTN, DM, hypercholesterolemia presents with unsteadiness for 3 days Plan: 1) CVA -Likely Ischemic stroke likely secondary to emboli -TELE admission -CT head: no acute intracranial abnl; no significant findings to account for clinical presentation; old infarcts R occipital lobe, R parietal lobe -ASA 81mg po daily -Crestor 10mg po hs -f/u Echo with bubble study -f/u MRI brain w/o contrast -f/u MRA head/neck w/o contrast -PT/OT -Neuro checks -Fall Risk -Heart healthy diet -Dr. Ventura neurology on board -Dr. Wise cardiology on board -JED panel negative x 3; EKGs NSR, No acute ST/T wave changes 2) Hypertension -Lisinopril 5mg PO daily -Monitor 3)Diabetes type 2 -Accuchecks ACHS -RISS -f/u HgbA1c 4) Hx of Hypercholesterolemia -Crestor 10mg po hs -T -Cholesterol: 218 -LDL: 154 -HDL: 47 5) PPX -Pepcid 20mg po bid -Heparin 5000U SC q12 -SCDs -PT/OT eval -Neuro checks -Fall Risk -Heart healthy diet Patrick Davies PGY1 <BorGladis prieto Mame - Last Filed: 02/12/17 15:56> Objective - Vital Signs/Intake and Output Vital Signs (last 24 hours): Temp Pulse Resp BP Pulse Ox 98.6 F 73 18 145/85 97 02/12/17 07:15 02/12/17 08:00 02/12/17 07:15 02/12/17 07:15 02/12/17 07:15 - Medications Medications: Current Medications Aspirin (Aspirin Chewable) 81 mg PO DAILY [facility] Last Admin: 02/12/17 09:46 Dose: 81 mg Famotidine (Pepcid) 20 mg PO BID [facility] Last Admin: 02/12/17 09:46 Dose: 20 mg Heparin Sodium (Porcine) (Heparin) 5,000 units SC Q12 [facility] Last Admin: 02/12/17 09:46 Dose: 5,000 units Insulin Aspart (Novolog) 0 unit SC ACHS [facility] PRN Reason: Protocol Last Admin: 02/12/17 12:30 Dose: 2 unit Insulin Glargine (Lantus) 10 unit SC [facility] Lisinopril (Zestril) 5 mg PO DAILY [facility] Last Admin: 02/12/17 09:46 Dose: 5 mg Rosuvastatin Calcium (Crestor) 10 mg PO HS [facility] Last Admin: 02/11/17 21:42 Dose: 10 mg - Labs Labs: 02/12/17 08:11 02/12/17 08:11 PT 11.7 SECONDS (9.7-12.2) 02/10/17 15:53 INR 1.0 02/10/17 15:53 APTT 28 SECONDS (21-34) 02/10/17 15:53 Attending/Attestation - Attestation I have personally seen and examined this patient.: Yes I have fully participated in the care of the patient.: Yes I have reviewed all pertinent clinical information, including history, physical exam and plan: Yes Notes (Text): Patient seen, examined and case discussed with day-time resident. Patient reports he keeps missing his intended object when he tries to picking tech such as his telephone. Patient denies other acute complaints. Patient awaiting workup including MRIs/echo/cartoid etc which have not been completed because those departments are closed during the holiday weekend; hopefully will be completed tomorrow. Pending hypercoagability workup. Assessment/Plan 1) CVA -Likely Ischemic stroke likely secondary to emboli -TELE admission -CT head: no acute intracranial abnl; no significant findings to account for clinical presentation; old infarcts R occipital lobe, R parietal lobe -ASA 81mg po daily -Crestor 10mg po hs -f/u Echo with bubble study -f/u MRI brain w/o contrast -f/u MRA head/neck w/o contrast -PT/OT eval -Neuro checks -Fall Risk -Heart healthy diet -Dr. Ventura neurology on board-->help appreciated -Dr. Wise cardiology on board-->help appreciated -EKG: NSR, Sinus arrhythmia, NSR 2) Hypertension -Lisinopril 5mg PO daily -Monitor 3)Diabetes type 2 -Accuchecks QAC and HS -RISS -[id number] 10.4 and Lipid panel: T Chol:218 LDL:154 HDL:47 -Start Lantus 10 units subqHS 4) Hx of Hypercholesterolemia -Crestor 10mg po hs -cyob8cT 10.4 and Lipid panel: T Chol:218 LDL:154 HDL:47 5) Gait instability -PT Eval 6) PPX -Pepcid 20mg po bid -Heparin 5000U SC q12 -SCDs -PT/OT eval -Neuro checks -Fall Risk -Heart healthy diet
[2017-02-12] MEDS: (Novolog) Insulin Aspart, Recombinant 100 u/ml 10 ml vial SC SCH ×4 (07:51→22:08)
--- NOTE | 2017-02-12 07:52 | CP.PCM.PN ---
Subjective - Date & Time of Evaluation Date of Evaluation: 02/12/17 Time of Evaluation: 06:50 - Subjective Subjective: no cp Objective - Vital Signs/Intake and Output Vital Signs (last 24 hours): Temp Pulse Resp BP Pulse Ox 97.9 F 63 20 140/96 H 100 02/11/17 23:40 02/12/17 00:18 02/11/17 23:40 02/12/17 04:10 02/11/17 23:40 - Medications Medications: Current Medications Aspirin (Aspirin Chewable) 81 mg PO DAILY [facility] Last Admin: 02/11/17 11:26 Dose: 81 mg Famotidine (Pepcid) 20 mg PO BID [facility] Last Admin: 02/11/17 17:34 Dose: 20 mg Heparin Sodium (Porcine) (Heparin) 5,000 units SC Q12 [facility] Last Admin: 02/11/17 21:43 Dose: 5,000 units Insulin Aspart (Novolog) 0 unit SC ACHS [facility] PRN Reason: Protocol Last Admin: 02/12/17 07:51 Dose: 2 unit Lisinopril (Zestril) 5 mg PO DAILY [facility] Last Admin: 02/11/17 10:37 Dose: 5 mg Rosuvastatin Calcium (Crestor) 10 mg PO HS [facility] Last Admin: 02/11/17 21:42 Dose: 10 mg - Labs Labs: 02/11/17 07:24 02/11/17 07:24 PT 11.7 SECONDS (9.7-12.2) 02/10/17 15:53 INR 1.0 02/10/17 15:53 APTT 28 SECONDS (21-34) 02/10/17 15:53 - Constitutional Appears: Well - Head Exam Head Exam: ATRAUMATIC Assessment and Plan (1) HTN (hypertension) Assessment & Plan: continue bp control and dmcontrol Status: Chronic
[2017-02-12 08:24] LABS: BASO # 0.1 K/uL (0.0-0.2); BASO % 0.9 % (0.0-2.0); EOS # 0.4 K/uL (0.0-0.7); EOS % 6.8 % (0.0-4.0); HEMATOCRIT 41.4 % (35.0-51.0); LYMPH % 32.4 % (20.0-40.0); MEAN CELL VOLUME 88.7 fL (80.0-94.0); MEAN CORPUSCULAR HEMOGLOBIN 31.5 pg (27.0-31.0); MEAN CORPUSCULAR HGB CONC 35.5 g/dL (33.0-37.0); MEAN PLATELET VOLUME 9.5 fL (7.2-11.7); MONO # 0.5 K/uL (0.0-0.8); MONO % 7.3 % (0.0-10.0); NRBC % 0.3 % (0.0-2.0); RED CELL DISTRIBUTION WIDTH 12.1 % (11.5-14.5); WHITE BLOOD COUNT 6.2 K/uL (4.8-10.8)
[2017-02-12 08:34] LABS: CHLORIDE 99 mmol/L (98-107); SODIUM 135 mmol/L (132-148)
[2017-02-12 08:36] LABS: BILIRUBIN,TOTAL 1.1 mg/dL (0.2-1.3); GFR AFRICAN-AMERICAN > 60
[2017-02-12 08:37] LABS: ALB/GLOB RATIO 1.3 (1.0-2.1); ALKALINE PHOSPHATASE 134 U/L (38-126); ALT/SGPT 30 U/L (21-72); AST/SGOT 38 U/L (17-59); BLOOD UREA NITROGEN 17 mg/dL (9-20); CARBON DIOXIDE 27 mmol/L (22-30); GLUCOSE,RANDOM 265 mg/dL (75-110); PHOSPHOROUS 3.6 mg/dL (2.5-4.5); TOTAL PROTEIN 6.8 g/dL (6.3-8.3)
[2017-02-12 08:38] LABS: CALCIUM 8.6 mg/dl (8.6-10.4); MAGNESIUM 1.8 mg/dL (1.6-2.3)
[2017-02-12] MEDS: (Lantus) Insulin Glargine, Recombinant SC SCH (22:04)
[2017-02-13 06:37] LABS: BASO # 0.1 K/uL (0.0-0.2); MONO # 0.5 K/uL (0.0-0.8)
[2017-02-13 06:45] LABS: CHLORIDE 98 mmol/L (98-107); POTASSIUM 4.1 mmol/L (3.6-5.2); SODIUM 134 mmol/L (132-148)
[2017-02-13 06:47] LABS: ALB/GLOB RATIO 1.3 (1.0-2.1); AST/SGOT 42 U/L (17-59); BILIRUBIN,TOTAL 0.9 mg/dL (0.2-1.3); CARBON DIOXIDE 26 mmol/L (22-30); GFR AFRICAN-AMERICAN > 60; TOTAL PROTEIN 6.5 g/dL (6.3-8.3)
[2017-02-13 06:48] LABS: ALKALINE PHOSPHATASE 155 U/L (38-126); ALT/SGPT 30 U/L (21-72); BLOOD UREA NITROGEN 20 mg/dL (9-20); CALCIUM 8.8 mg/dl (8.6-10.4); GLUCOSE,RANDOM 272 mg/dL (75-110)
[2017-02-13 07:12] LABS: BASO % 0.9 % (0.0-2.0); EOS # 0.3 K/uL (0.0-0.7); EOS % 4.8 % (0.0-4.0); HEMATOCRIT 40.8 % (35.0-51.0); LYMPH # 2.4 K/uL (1.0-4.3); LYMPH % 33.7 % (20.0-40.0); MEAN CELL VOLUME 88.5 fL (80.0-94.0); MEAN CORPUSCULAR HEMOGLOBIN 31.2 pg (27.0-31.0); MEAN CORPUSCULAR HGB CONC 35.2 g/dL (33.0-37.0); MEAN PLATELET VOLUME 9.8 fL (7.2-11.7); MONO % 6.4 % (0.0-10.0); WHITE BLOOD COUNT 7.1 K/uL (4.8-10.8)
--- NOTE | 2017-02-13 07:25 | CP.PCM.PN ---
<Jaclyn Wallis - Last Filed: 02/13/17 09:14> Subjective - Date & Time of Evaluation Date of Evaluation: 02/13/17 Time of Evaluation: 07:15 - Subjective Subjective: PGY1 Medicine note for Dr. Bay Patient seen and examined at bedside. Nursing reports no acute events overnight. Patient reports he feels well and is just waiting for the scans to be completed. He continues to complain of some "lack of coordination" when picking up objects. Patient denies any lightheadedness when standing up from a seated position or sitting up from a lying position. Patient denies headache, dizziness, chest pain, palpitations, SOB, cough, abdominal pain, nausea, vomiting, bowel/bladder complaints, pain/swelling in legs bilaterally. Objective - Vital Signs/Intake and Output Vital Signs (last 24 hours): Temp Pulse Resp BP Pulse Ox 97.4 F L 69 20 109/78 98 02/12/17 23:15 02/12/17 23:30 02/12/17 23:15 02/12/17 23:15 02/12/17 23:15 - Medications Medications: Current Medications Aspirin (Aspirin Chewable) 81 mg PO DAILY [facility] Last Admin: 02/12/17 09:46 Dose: 81 mg Famotidine (Pepcid) 20 mg PO BID [facility] Last Admin: 02/12/17 18:14 Dose: 20 mg Heparin Sodium (Porcine) (Heparin) 5,000 units SC Q12 [facility] Last Admin: 02/12/17 22:04 Dose: 5,000 units Insulin Aspart (Novolog) 0 unit SC ACHS [facility] PRN Reason: Protocol Last Admin: 02/12/17 22:08 Dose: Not Given Insulin Glargine (Lantus) 10 unit SC [facility] Last Admin: 02/12/17 22:04 Dose: 10 units Lisinopril (Zestril) 5 mg PO DAILY [facility] Last Admin: 02/12/17 09:46 Dose: 5 mg Rosuvastatin Calcium (Crestor) 10 mg PO [facility] Last Admin: 02/12/17 22:03 Dose: 10 mg - Labs Labs: 02/13/17 06:17 02/13/17 06:17 PT 11.7 SECONDS (9.7-12.2) 02/10/17 15:53 INR 1.0 02/10/17 15:53 APTT 28 SECONDS (21-34) 02/10/17 15:53 - Constitutional Appears: Non-toxic, No Acute Distress - Head Exam Head Exam: ATRAUMATIC, NORMAL INSPECTION, NORMOCEPHALIC - Eye Exam Eye Exam: Normal appearance. absent: Conjunctival injection, Scleral icterus Pupil Exam: NORMAL ACCOMODATION - ENT Exam ENT Exam: Mucous Membranes Moist - Neck Exam Neck Exam: Full ROM, Normal Inspection. absent: Tenderness - Respiratory Exam Respiratory Exam: Clear to Ausculation Bilateral, NORMAL BREATHING PATTERN. absent: Accessory Muscle Use, Rales, Rhonchi, Wheezes, Respiratory Distress - Cardiovascular Exam Cardiovascular Exam: REGULAR RHYTHM, RRR, +S1, +S2. absent: Murmur - GI/Abdominal Exam GI & Abdominal Exam: Soft, Normal Bowel Sounds. absent: Firm, Guarding, Rigid, Tenderness - Rectal Exam Rectal Exam: Deferred - Extremities Exam Extremities Exam: Full ROM, Normal Capillary Refill, Normal Inspection. absent : Pedal Edema, Tenderness - Back Exam Back Exam: NORMAL INSPECTION. absent: rash noted - Neurological Exam Neurological Exam: Alert, Awake, CN II-XII Intact, Normal Gait, Oriented x3 Additional comments: Heel to hooper: abnormal on right side - Psychiatric Exam Psychiatric exam: Normal Affect, Normal Mood - Skin Skin Exam: Dry, Intact, Normal Color, Warm Assessment and Plan - Assessment and Plan (Free Text) Assessment: 51 year old male PMHx HTN, DM, hypercholesterolemia presents with unsteadiness for 3 days Plan: 1) CVA -Likely Ischemic stroke likely secondary to emboli -TELE admission -CT head: no acute intracranial abnl; no significant findings to account for clinical presentation; old infarcts R occipital lobe, R parietal lobe -ASA 81mg po daily -Crestor 10mg po hs -f/u Echo with bubble study -f/u MRI brain w/o contrast -f/u MRA head/neck w/o contrast -PT/OT -Neuro checks -Fall Risk -Heart healthy diet -Dr. Ventura neurology on board -Dr. Wise cardiology on board -JED panel negative x 3; EKGs NSR, No acute ST/T wave changes 2) Hypertension -Lisinopril 5mg PO daily -Monitor 3)Diabetes type 2 -Accuchecks ACHS -RISS -Lantus 10U HS -HgbA1c 10.4 4) Hx of Hypercholesterolemia -Crestor 10mg po hs -T -Cholesterol: 218 -LDL: 154 -HDL: 47 5) PPX -Pepcid 20mg po bid -Heparin 5000U SC q12 -SCDs -PT/OT eval -Neuro checks -Fall Risk -Heart healthy diet Will discuss case with Dr. Phu Wallis PGY1 <Steven Bay - Last Filed: 03/21/17 11:44> Objective - Vital Signs/Intake and Output Vital Signs (last 24 hours): Temp Pulse Resp BP Pulse Ox 98 F 53 L 20 117/77 99 02/14/17 15:35 02/14/17 16:00 02/14/17 15:35 02/14/17 15:35 02/14/17 15:35 - Labs Labs: 02/14/17 07:58 02/14/17 07:58 PT 11.7 SECONDS (9.7-12.2) 02/10/17 15:53 INR 1.0 02/10/17 15:53 APTT 28 SECONDS (21-34) 02/10/17 15:53 Attending/Attestation - Attestation I have personally seen and examined this patient.: Yes I have fully participated in the care of the patient.: Yes I have reviewed all pertinent clinical information, including history, physical exam and plan: Yes Notes (Text): Patient Seen and examined with the resident. Agree with the resident's evaluation, assessment and plan. 1) CVA embolic -Likely secondary to emboli 2) Hypertension 3)Diabetes type 2 uncontrolled 4) Hx of Hypercholesterolemia
[2017-02-13] MEDS: (Novolog) Insulin Aspart, Recombinant 100 u/ml 10 ml vial SC SCH ×4 (07:30→22:17)
--- NOTE | 2017-02-13 10:31 | CP.PCM.PN ---
<Cooper Karimi - Last Filed: 02/13/17 16:19> Subjective - Date & Time of Evaluation Date of Evaluation: 02/13/17 Time of Evaluation: 09:25 - Subjective Subjective: Cardiology Progress Note Dr. Wise Patient seen and examined at bedside. No acute events overnight. Denies chest pain, shortness of breath, or sensation of room spinning today. Lying comfortably in bed, but stood up to demonstrate gait without overt difficulty or symptoms, denies dizziness or room-spinning with sitting-->standing/walking/ exertion. All other ROS negative. Objective - Vital Signs/Intake and Output Vital Signs (last 24 hours): Temp Pulse Resp BP Pulse Ox 97.4 F L 68 18 143/90 100 02/13/17 07:10 02/13/17 07:10 02/13/17 07:10 02/13/17 07:10 02/13/17 07:10 - Medications Medications: Current Medications Aspirin (Aspirin Chewable) 81 mg PO DAILY [facility] Last Admin: 02/13/17 10:04 Dose: 81 mg Famotidine (Pepcid) 20 mg PO BID [facility] Last Admin: 02/13/17 10:03 Dose: 20 mg Heparin Sodium (Porcine) (Heparin) 5,000 units SC Q12 [facility] Last Admin: 02/13/17 10:04 Dose: 5,000 units Insulin Aspart (Novolog) 0 unit SC [facility] PRN Reason: Protocol Last Admin: 02/13/17 07:30 Dose: 2 unit Insulin Glargine (Lantus) 10 unit SC [facility] Last Admin: 02/12/17 22:04 Dose: 10 units Lisinopril (Zestril) 5 mg PO DAILY [facility] Last Admin: 02/13/17 10:04 Dose: 5 mg Rosuvastatin Calcium (Crestor) 10 mg PO HS [facility] Last Admin: 02/12/17 22:03 Dose: 10 mg - Labs Labs: 02/13/17 06:17 02/13/17 06:17 PT 11.7 SECONDS (9.7-12.2) 02/10/17 15:53 INR 1.0 02/10/17 15:53 APTT 28 SECONDS (21-34) 02/10/17 15:53 - Constitutional Appears: Well, Non-toxic, No Acute Distress - Head Exam Head Exam: ATRAUMATIC, NORMAL INSPECTION, NORMOCEPHALIC - Eye Exam Eye Exam: EOMI, Normal appearance, PERRL. absent: Conjunctival injection, Scleral icterus Pupil Exam: NORMAL ACCOMODATION, PERRL. absent: Irregular, Unequal - ENT Exam ENT Exam: Mucous Membranes Moist - Neck Exam Neck Exam: Full ROM. absent: Lymphadenopathy, Tenderness - Respiratory Exam Respiratory Exam: Clear to Ausculation Bilateral, NORMAL BREATHING PATTERN. absent: Accessory Muscle Use, Chest Wall Tenderness, Decreased Breath Sounds, Rales, Rhonchi, Wheezes - Cardiovascular Exam Cardiovascular Exam: REGULAR RHYTHM, RRR, +S1, +S2. absent: Bradycardia, Tachycardia, Irregular Rhythm, JVD, +S4 - GI/Abdominal Exam GI & Abdominal Exam: Soft, Normal Bowel Sounds. absent: Distended, Firm, Rigid , Tenderness, Diminished Bowel Sounds, Hyperactive Bowel Sounds, Hypoactive Bowel Sounds - Extremities Exam Extremities Exam: Full ROM, Normal Capillary Refill, Normal Inspection. absent : Calf Tenderness, Joint Swelling, Pedal Edema, Tenderness Additional comments: +1 dorsalis pedis pulses bilaterally - Neurological Exam Neurological Exam: Alert, Awake - Psychiatric Exam Psychiatric exam: Normal Affect, Normal Mood - Skin Skin Exam: Dry, Intact, Normal Color, Warm Assessment and Plan (1) CVA (cerebral vascular accident) Assessment & Plan: EKG 02/10/17 #1: Sinus bradycardia at 59bpm, Otherwise normal ECG EKG 02/10/17 #2: Normal sinus rhythm at 86bpm, Normal ECG EKG 02/11/17: Normal sinus rhythm (at 70bpm) with sinus arrhythmia (likely respiratory variation), Normal ECG Echo 02/10/17: LVEF 52%, pending official read Echo with Bubble Study pending CT head 02/10/17: No acute intracranial abnormalities, old infarcts right occipital and parietal lobes Pending head/neck MRA, brain MRI -Acute vs subacute CVA, per Neuro has likely had different infarct at different times -Concern for possible showering of emboli -Echo heart obtained, pending official read; pending Echo with bubble study -NSR on all EKGs, pt denies any history of cardiac disease or arrhythmias -Coagulopathy workup ordered by primary team, pending results -Continue medical management: ASA 81mg PO daily, Rosuvastatin 2.5mg PO daily -Continue DVT ppx with Heparin SC -Neuro following as well, appreciate their input Status: Acute (2) HTN (hypertension) Assessment & Plan: -Currently well controlled -Continue medical management: Lisinopril 5mg PO daily -Avoid aggressive drops in BP given concern for stroke, want to avoid causing a watershed infarct Status: Acute (3) Diabetes Assessment & Plan: -Management as per Primary team Status: Acute - Assessment and Plan (Free Text) Assessment: Case discussed with Dr. Wise. <Abebe Wise - Last Filed: 03/26/17 03:31> Objective - Vital Signs/Intake and Output Vital Signs (last 24 hours): Temp Pulse Resp BP Pulse Ox 98 F 53 L 20 117/77 99 02/14/17 15:35 02/14/17 16:00 02/14/17 15:35 02/14/17 15:35 02/14/17 15:35 - Labs Labs: 02/14/17 07:58 02/14/17 07:58 PT 11.7 SECONDS (9.7-12.2) 02/10/17 15:53 INR 1.0 02/10/17 15:53 APTT 28 SECONDS (21-34) 02/10/17 15:53 Attending/Attestation - Attestation I have personally seen and examined this patient.: Yes I have fully participated in the care of the patient.: Yes I have reviewed all pertinent clinical information, including history, physical exam and plan: Yes Notes (Text): 03/26/17 03:31 continue bp meds
--- NOTE | 2017-02-13 12:10 | CARD ---
APPROVED REPORT EKG Measurement Heart [id number] <Conclusion> Sinus bradycardia Otherwise normal ECG
--- NOTE | 2017-02-13 12:15 | CARD ---
APPROVED REPORT EKG Measurement Heart [id number] <Conclusion> Normal sinus rhythm Normal ECG
--- NOTE | 2017-02-13 15:27 | MRI ---
PROCEDURE: MRI BRAIN WITHOUT CONTRAST HISTORY: Ischemic CVA COMPARISON: Noncontrast head CT from 02/10/2017 TECHNIQUE: Multiplanar, multisequence MR images of the brain were obtained without intravenous contrast enhancement. FINDINGS: DWI: There is an acute infarction in the right posterior parietal lobe and central areas of hemorrhage. BRAIN PARENCHYMA: Krishnan-white matter differentiation is preserved. There is no mass, mass effect or abnormal extra-axial fluid collection. There is cystic encephalomalacia and gliosis with cortical laminar necrosis in the right occipital lobe. There is also an old infarction in the right paramedian and cortical frontal lobe. There are also old infarctions in the left cerebellar hemisphere. VENTRICLES: The ventricles are normal in size, shape and configuration. CRANIUM: There is normal bone marrow signal pattern. ORBITS: Grossly unremarkable. PARANASAL SINUSES/MASTOIDS: There is polypoid mucosal thickening in the maxillary sinuses. VASCULAR SYSTEM: Skull base flow voids intact. OTHER FINDINGS: None. IMPRESSION: 1. Acute hemorrhagic infarction in the right posterior parietal lobe involving the MCA territory. 2. Cystic encephalomalacia and gliosis in the right occipital lobe, a sequela of remote right ENERGY ASSISTANT territory infarction. 3. Old infarctions in the right paramedian and cortical frontal lobe and left cerebellar hemisphere. Critical findings were discussed with nurse quesada in [facility] on 02/13/2017 at 3:20 p.m.
--- NOTE | 2017-02-13 15:30 | MRI ---
PROCEDURE: Magnetic Resonance Angiography Brain HISTORY: Ischemic CVA COMPARISON: None available. TECHNIQUE: 3D time of flight MR angiography of the intracranial arteries was performed. Rotating maximum intensity projection images were generated. FINDINGS: INTERNAL CEREBRAL ARTERIES: Normal in caliber. The skull base, petrous, cavernous and supraclinoid segments are bilaterally widely patient. ANTERIOR CEREBRAL ARTERIES: Normal in caliber. The left A1 segment is hypoplastic. A1 and A2 segments are widely patent. Smaller distal branches unremarkable, as visualized. MIDDLE CEREBRAL ARTERIES: Normal in caliber. M1 and M2 segments are widely patent. Perisylvian branches grossly symmetric. POSTERIOR CIRCULATION: Basilar Artery: Normal. Distal Vertebral Arteries: Normal. The left vertebral artery is dominant. Posterior Cerebral Arteries: Normal. Posterior Inferior Cerebellar Arteries: Normal. ANEURYSM/ VASCULAR MALFORMATIONS: None. OTHER FINDINGS: None. IMPRESSION: No evidence of occlusion, definite significant stenosis or saccular aneurysm.
--- NOTE | 2017-02-13 15:32 | MRI ---
PROCEDURE: MR Angiography of the neck without contrast HISTORY: ischemic cva COMPARISON: None available. TECHNIQUE: 3D [id number] angiography of the neck was performed. Rotating maximum intensity projection images of the cervical carotid and vertebral arteries were generated. The origins of the common carotid arteries were not visualized, which is a limitation inherent to the non-contrast time of flight technique. FINDINGS: RIGHT CAROTID ARTERIES: Common Carotid Artery: Normal. Carotid Bifurcation: Normal. Internal Carotid Artery:Normal. External Carotid Artery (proximal branches): Normal. LEFT CAROTID ARTERIES: Common Carotid Artery: Normal. Carotid Bifurcation: Normal. Internal Carotid Artery:Normal. External Carotid Artery (proximal branches): Normal. VERTEBRAL ARTERIES: Right Vertebral Artery: Normal. Dominant. Left Vertebral Artery: Normal. OTHER FINDINGS: None. IMPRESSION: Normal MR Angiography of the neck. No hemodynamically significant stenosis in the carotid arteries.
--- NOTE | 2017-02-13 20:47 | CARD ---
APPROVED REPORT EXAM: Two-dimensional and M-mode echocardiogram with Doppler and color Doppler. Other Information Quality : GoodRhythm : NSR INDICATION ACUTE VS SUBACUTE CVA, INFARCTS OF RIGHT OCCIPITAL LOBE AND RIGHT RISK FACTORS Hypertension Hyperlipidemia Diabetes M-Mode DIMENSIONS RVDd1.25 (2.1-3.2cm)Left Atrium (MM)4.72 (2.5-4.0cm) IVSd0.86 (0.7-1.1cm)Aortic Root2.93 (2.2-3.7cm) LVDd5.39 (4.0-5.6cm)Aortic Cusp Exc.1.76 (1.5-2.0cm) PWd1.09 (0.7-1.1cm)FS (%) 27 % LVDs3.94 (2.0-3.8cm)LVEF (%)52 (>50%) Aortic Valve AoV Peak Akqwavri702.1cm/Sukh Peak GR.12mmHg Mitral Valve MV E Eaidotby949.5cm/sMV A Pwqxxolg202.5cm/sE/A ratio0.8 TDI E/Lateral E'0.0E/Medial E'0.0 Tricuspid Valve TR Peak Wdjtxano966pf/sTR Peak Gr.02ihOgJZMD63yoOa LEFT VENTRICLE The left ventricle is normal size. There is normal left ventricular wall thickness. The left ventricular function is normal. The left ventricular ejection fraction is within the normal range. There is normal LV segmental wall motion. Transmitral Doppler flow pattern is Grade I-abnormal relaxation pattern. RIGHT VENTRICLE The right ventricle is normal size. There is normal right ventricular wall thickness. The right ventricular systolic function is normal. ATRIA The left atrium is mildly dilated. The right atrium size is normal. AORTIC VALVE The aortic valve is normal in structure. No aortic regurgitation is present. MITRAL VALVE The mitral valve is normal in structure. There is no evidence of mitral valve prolapse. TRICUSPID VALVE There is mild pulmonary hypertension. GREAT VESSELS The aortic root is normal in size. The IVC collapses <50% with inspiration. <Conclusion> There is normal left ventricular wall thickness. The left ventricular function is normal. The left ventricular ejection fraction is within the normal range. There is normal LV segmental wall motion. Transmitral Doppler flow pattern is Grade I-abnormal relaxation pattern. There is mild pulmonary hypertension.
[2017-02-13] MEDS: (Lantus) Insulin Glargine, Recombinant SC SCH (22:22)
[2017-02-14 04:09] LABS: B2 GLYCOPROTEIN I AB(IGA) 70 SAU (<=20); B2 GLYCOPROTEIN I AB(IGG) <9 SGU (<=20); B2 GLYCOPROTEIN I AB(IGM) <9 SMU (<=20)
--- NOTE | 2017-02-14 07:02 | CP.PCM.PN ---
<BimalJaclyn govea - Last Filed: 02/14/17 12:04> Subjective - Date & Time of Evaluation Date of Evaluation: 02/14/17 Time of Evaluation: 07:15 - Subjective Subjective: PGY1 Medicine note for Dr. Bay Patient seen and examined at bedside. Nursing reports no acute events overnight. Patient denies any acute complaints of headache, dizziness, chest pain, palpitations, SOB, cough, abdominal pain, nausea, vomiting, bowel/bladder complaints, pain/swelling in legs bilaterally. Patient has no trouble walking. He is for MEGA today. Objective - Vital Signs/Intake and Output Vital Signs (last 24 hours): Temp Pulse Resp BP Pulse Ox 98.2 F 65 20 129/75 98 02/14/17 04:24 02/14/17 04:24 02/14/17 04:24 02/14/17 04:24 02/14/17 04:24 Intake and Output: 02/14/17 02/14/17 06:59 18:59 Intake Total 600 Balance 600 - Medications Medications: Current Medications Aspirin (Aspirin Chewable) 81 mg PO DAILY [facility] Last Admin: 02/13/17 10:04 Dose: 81 mg Famotidine (Pepcid) 20 mg PO BID [facility] Last Admin: 02/13/17 17:48 Dose: 20 mg Heparin Sodium (Porcine) (Heparin) 5,000 units SC Q12 [facility] Last Admin: 02/13/17 10:04 Dose: 5,000 units Insulin Aspart (Novolog) 0 unit SC [facility] PRN Reason: Protocol Insulin Glargine (Lantus) 10 unit SC HS [facility] Last Admin: 02/13/17 22:22 Dose: 10 units Lisinopril (Zestril) 5 mg PO DAILY [facility] Last Admin: 02/13/17 10:04 Dose: 5 mg Rosuvastatin Calcium (Crestor) 10 mg PO HS [facility] Last Admin: 02/12/17 22:03 Dose: 10 mg - Labs Labs: 02/13/17 06:17 02/13/17 06:17 PT 11.7 SECONDS (9.7-12.2) 02/10/17 15:53 INR 1.0 02/10/17 15:53 APTT 28 SECONDS (21-34) 02/10/17 15:53 - Constitutional Appears: Non-toxic, No Acute Distress - Head Exam Head Exam: ATRAUMATIC, NORMAL INSPECTION, NORMOCEPHALIC - Eye Exam Eye Exam: Normal appearance. absent: Conjunctival injection, Scleral icterus - ENT Exam ENT Exam: Mucous Membranes Moist - Neck Exam Neck Exam: Full ROM, Normal Inspection. absent: Tenderness - Respiratory Exam Respiratory Exam: Clear to Ausculation Bilateral, NORMAL BREATHING PATTERN. absent: Accessory Muscle Use, Rales, Rhonchi, Wheezes, Respiratory Distress - Cardiovascular Exam Cardiovascular Exam: REGULAR RHYTHM, RRR, +S1, +S2. absent: Murmur - GI/Abdominal Exam GI & Abdominal Exam: Soft, Normal Bowel Sounds. absent: Firm, Guarding, Rigid, Tenderness - Extremities Exam Extremities Exam: Normal Capillary Refill, Normal Inspection. absent: Pedal Edema, Tenderness - Back Exam Back Exam: NORMAL INSPECTION. absent: rash noted, tenderness - Neurological Exam Neurological Exam: Alert, Awake, Normal Gait, Oriented x3 - Psychiatric Exam Psychiatric exam: Normal Affect, Normal Mood - Skin Skin Exam: Dry, Intact, Normal Color, Warm Assessment and Plan - Assessment and Plan (Free Text) Assessment: 51 year old male PMHx HTN, DM, hypercholesterolemia presents with unsteadiness for 3 days Plan: 1) CVA -TELE admission -CT head: no acute intracranial abnl; no significant findings to account for clinical presentation; old infarcts R occipital lobe, R parietal lobe -ASA 81mg po daily -Crestor 20mg po hs -f/u Echo final read and bubble study -patient for MEGA this AM with Dr. Velazquez -MRI brain w/o contrast: acute hemorrhagic infarction in R posterior parietal lobe involving MCA territory; Cystic encephalomalacia and gliosis in the R occipital lobe, a sequela of remote right HUNTER SKIN DIVER territory infarction; old infarctions in the R paramedian and cortical frontal lobe and L cerebellar hemisphere -repeat head CT 02/14: acute R parietal infarct with minimal high attenuation consistent with hemorrhage as demonstrated on MR examination of previous day. Old right occipital infarct. Old left cereballar hemispheric infarct. -MRA head/neck w/o contrast: both were unremarkable with no significant stenosis noted -PT/OT -Neuro checks -Fall Risk -Heart healthy diet -Dr. Ventura neurology on board -Dr. Wise cardiology on board -JED panel negative x 3; EKGs NSR, No acute ST/T wave changes 2) Hypertension -Lisinopril 5mg PO daily -Monitor 3)Diabetes type 2 -Accuchecks ACHS -RISS -Lantus 10U HS -HgbA1c 10.4 4) Hx of Hypercholesterolemia -Crestor 20mg po hs -T -Cholesterol: 218 -LDL: 154 -HDL: 47 5) PPX -Pepcid 20mg po bid -Heparin 5000U SC q12 -SCDs -PT/OT eval -Neuro checks -Fall Risk -Heart healthy diet -NS @ 75cc/hr Will discuss case with Dr. Phu Wallis PGY1 <Steven Bay - Last Filed: 03/22/17 12:12> Objective - Vital Signs/Intake and Output Vital Signs (last 24 hours): Temp Pulse Resp BP Pulse Ox 98 F 53 L 20 117/77 99 02/14/17 15:35 02/14/17 16:00 02/14/17 15:35 02/14/17 15:35 02/14/17 15:35 - Labs Labs: 02/14/17 07:58 02/14/17 07:58 PT 11.7 SECONDS (9.7-12.2) 02/10/17 15:53 INR 1.0 02/10/17 15:53 APTT 28 SECONDS (21-34) 02/10/17 15:53 Attending/Attestation - Attestation I have personally seen and examined this patient.: Yes I have fully participated in the care of the patient.: Yes I have reviewed all pertinent clinical information, including history, physical exam and plan: Yes Notes (Text): Patient Seen and examined with the resident. Agree with the resident's evaluation, assessment and plan. 1) CVA Acute Hemorrhagic infarction of right posterior lobe involving MCA territory. 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
[2017-02-14] MEDS: (Novolog) Insulin Aspart, Recombinant 100 u/ml 10 ml vial SC SCH ×3 (08:05→17:46)
[2017-02-14 08:13] LABS: BASO # 0.1 K/uL (0.0-0.2); BASO % 1.2 % (0.0-2.0); EOS # 0.3 K/uL (0.0-0.7); HEMATOCRIT 42.6 % (35.0-51.0); LYMPH # 2.4 K/uL (1.0-4.3); LYMPH % 35.2 % (20.0-40.0); MEAN CELL VOLUME 87.6 fL (80.0-94.0); MEAN CORPUSCULAR HEMOGLOBIN 31.2 pg (27.0-31.0); MEAN CORPUSCULAR HGB CONC 35.6 g/dL (33.0-37.0); MEAN PLATELET VOLUME 9.5 fL (7.2-11.7); MONO # 0.5 K/uL (0.0-0.8); MONO % 7.4 % (0.0-10.0); RED CELL DISTRIBUTION WIDTH 12.1 % (11.5-14.5); WHITE BLOOD COUNT 6.8 K/uL (4.8-10.8)
[2017-02-14 08:31] VITALS: TEMP 98
[2017-02-14 08:36] LABS: CHLORIDE 99 mmol/L (98-107); POTASSIUM 4.2 mmol/L (3.6-5.2); SODIUM 136 mmol/L (132-148)
[2017-02-14 08:38] LABS: ALB/GLOB RATIO 1.3 (1.0-2.1); ALKALINE PHOSPHATASE 136 U/L (38-126); AST/SGOT 55 U/L (17-59); BILIRUBIN,TOTAL 1.1 mg/dL (0.2-1.3); CARBON DIOXIDE 27 mmol/L (22-30); GFR AFRICAN-AMERICAN > 60; TOTAL PROTEIN 7.2 g/dL (6.3-8.3)
[2017-02-14 08:39] LABS: ALT/SGPT 38 U/L (21-72); BLOOD UREA NITROGEN 16 mg/dL (9-20); GLUCOSE,RANDOM 204 mg/dL (75-110); MAGNESIUM 1.8 mg/dL (1.6-2.3); PHOSPHOROUS 4.4 mg/dL (2.5-4.5)
[2017-02-14] MEDS ORDERED: Propofol 10 mg/ml Inj (20 ML) ONE ×2 (10:15)
[2017-02-14] MEDS ORDERED: Lidocaine Hydrochloride 5 ML INJ ONE (10:15)
--- NOTE | 2017-02-14 10:22 | CP.PCM.PN ---
<Cooper Karimi - Last Filed: 02/14/17 10:22> Subjective - Date & Time of Evaluation Date of Evaluation: 02/14/17 Time of Evaluation: 07:30 - Subjective Subjective: Cardiology Progress Note Dr. Wise Patient seen and examined at bedside. No acute events overnight. Denies chest pain, shortness of breath, or sensation of room spinning today. Lying comfortably in bed, but stood up to demonstrate gait without overt difficulty or symptoms, denies dizziness or room-spinning with sitting-->standing/walking/ exertion. All other ROS negative. Objective - Vital Signs/Intake and Output Vital Signs (last 24 hours): Temp Pulse Resp BP Pulse Ox 98 F 70 17 107/75 100 02/14/17 07:10 02/14/17 07:10 02/14/17 07:10 02/14/17 07:10 02/14/17 07:10 Intake and Output: 02/14/17 02/14/17 06:59 18:59 Intake Total 600 Balance 600 - Medications Medications: Current Medications Aspirin (Aspirin Chewable) 81 mg PO DAILY [facility] Last Admin: 02/13/17 10:04 Dose: 81 mg Famotidine (Pepcid) 20 mg PO BID [facility] Last Admin: 02/14/17 09:26 Dose: Not Given Heparin Sodium (Porcine) (Heparin) 5,000 units SC Q12 [facility] Last Admin: 02/13/17 10:04 Dose: 5,000 units Insulin Aspart (Novolog) 0 unit SC [facility] PRN Reason: Protocol Last Admin: 02/14/17 08:05 Dose: Not Given Insulin Glargine (Lantus) 10 unit SC [facility] Last Admin: 02/13/17 22:22 Dose: 10 units Lisinopril (Zestril) 5 mg PO DAILY [facility] Last Admin: 02/14/17 09:37 Dose: 5 mg Rosuvastatin Calcium (Crestor) 10 mg PO [facility] Last Admin: 02/12/17 22:03 Dose: 10 mg - Labs Labs: 02/14/17 07:58 02/14/17 07:58 PT 11.7 SECONDS (9.7-12.2) 02/10/17 15:53 INR 1.0 02/10/17 15:53 APTT 28 SECONDS (21-34) 02/10/17 15:53 - Additional Findings Additional findings: - Constitutional Appears: Well, Non-toxic, No Acute Distress - Head Exam Head Exam: ATRAUMATIC, NORMAL INSPECTION, NORMOCEPHALIC - Eye Exam Eye Exam: EOMI, Normal appearance, PERRL. absent: Conjunctival injection, Scleral icterus Pupil Exam: NORMAL ACCOMODATION, PERRL. absent: Irregular, Unequal - ENT Exam ENT Exam: Mucous Membranes Moist - Neck Exam Neck Exam: Full ROM. absent: Lymphadenopathy, Tenderness - Respiratory Exam Respiratory Exam: Clear to Ausculation Bilateral, NORMAL BREATHING PATTERN. absent: Accessory Muscle Use, Chest Wall Tenderness, Decreased Breath Sounds, Rales, Rhonchi, Wheezes - Cardiovascular Exam Cardiovascular Exam: REGULAR RHYTHM, RRR, +S1, +S2. absent: Bradycardia, Tachycardia, Irregular Rhythm, JVD, +S4 - GI/Abdominal Exam GI & Abdominal Exam: Soft, Normal Bowel Sounds. absent: Distended, Firm, Rigid , Tenderness, Diminished Bowel Sounds, Hyperactive Bowel Sounds, Hypoactive Bowel Sounds - Extremities Exam Extremities Exam: Full ROM, Normal Capillary Refill, Normal Inspection, +1 dorsalis pedis pulses bilaterally. absent: Calf Tenderness, Joint Swelling, Pedal Edema, Tenderness - Neurological Exam Neurological Exam: Alert, Awake, Following commands appropriately, moving extremities spontaneously - Psychiatric Exam Psychiatric exam: Normal Affect, Normal Mood - Skin Skin Exam: Dry, Intact, Normal Color, Warm Assessment and Plan (1) CVA (cerebral vascular accident) Assessment & Plan: EKG 02/10/17 #1: Sinus bradycardia at 59bpm, Otherwise normal ECG EKG 02/10/17 #2: Normal sinus rhythm at 86bpm, Normal ECG EKG 02/11/17: Normal sinus rhythm (at 70bpm) with sinus arrhythmia (likely respiratory variation), Normal ECG Echo 02/10/17: LVEF 52%, normal LV wall thickness, normal LV segmental wall motion, transmitral flow grade-I abnormal relaxation, mild pulm HTN Echo with Bubble Study pending CT head 02/10/17: No acute intracranial abnormalities, old infarcts right occipital and parietal lobes Brain MRI 02/13/17: Acute hemorrhagic infarction right posterior parietal lobe involving MCA region, Cystic encephalomalacia and gliosis in right occipital lobe (sequella of right DIRECTOR OF CONSERVATION territory infarction), old infarcts in right paramedian/right cortical frontal lobes and left cerebellar hemisphere Head MRA 02/13/17: no evidence of aneurysm Neck MRA 02/13/17: normal MR angio of neck, no hemodynamically significant carotid artery stenosis -Acute vs subacute CVA, possibly both; per Neuro has likely had different infarct at different times -Concern for possible showering of emboli, MEGA ordered -MRI as above, acute hemorrhagic infarct; holding ASA and SC Heparin, Neuro managing further -Echo heart obtained, pending official read; pending Echo with bubble study -NSR on all EKGs, pt denies any history of cardiac disease or arrhythmias -Coagulopathy workup ordered by primary team, pending results -Continue medical management: Rosuvastatin 2.5mg PO daily; holding ASA due to hemorrhagic infarct -Neuro following as well, appreciate their input Status: Acute (2) HTN (hypertension) Assessment & Plan: -Currently well controlled -Continue medical management: Lisinopril 5mg PO daily -Avoid aggressive drops in BP given concern for stroke, want to avoid causing a watershed infarct Status: Chronic (3) Diabetes Assessment & Plan: -Management as per Primary team Status: Chronic - Assessment and Plan (Free Text) Assessment: Case discussed with Dr. Wise. <Abebe Wise - Last Filed: 03/26/17 03:30> Objective - Vital Signs/Intake and Output Vital Signs (last 24 hours): Temp Pulse Resp BP Pulse Ox 98 F 53 L 20 117/77 99 02/14/17 15:35 02/14/17 16:00 02/14/17 15:35 02/14/17 15:35 02/14/17 15:35 - Labs Labs: 02/14/17 07:58 02/14/17 07:58 PT 11.7 SECONDS (9.7-12.2) 02/10/17 15:53 INR 1.0 02/10/17 15:53 APTT 28 SECONDS (21-34) 02/10/17 15:53 Attending/Attestation - Attestation I have personally seen and examined this patient.: Yes I have fully participated in the care of the patient.: Yes I have reviewed all pertinent clinical information, including history, physical exam and plan: Yes Notes (Text): 03/26/17 03:30 control bp low salt diet
--- NOTE | 2017-02-14 11:11 | CT ---
PROCEDURE: CT HEAD WITHOUT CONTRAST. HISTORY: REPEAT CAT SCAN HEAD COMPARISON: 02/10/2017 TECHNIQUE: Axial computed tomography images were obtained through the head/brain without intravenous contrast. Radiation dose: Total exam DLP = 910.19 mGy-cm. This CT exam was performed using one or more of the following dose reduction techniques: Automated exposure control, adjustment of the mA and/or kV according to patient size, and/or use of iterative reconstruction technique. FINDINGS: HEMORRHAGE: Minimal high attenuation seen in the right parietal cortex (series 4, image 30 through 32). Consistent with findings on MRI examination of 02/13/2017. BRAIN: No intracranial mass. Findings consistent with acute infarct high right parietal as demonstrated on MR examination. Extensive encephalomalacia right occipital lobe consistent with old infarct. Small old left cerebellar hemispheric infarct. VENTRICLES: Unremarkable. No hydrocephalus. CALVARIUM: Unremarkable. PARANASAL SINUSES: Minimal chronic ethmoid sinusitis. MASTOID AIR CELLS: Unremarkable as visualized. No inflammatory changes. OTHER FINDINGS: None. IMPRESSION: Acute right parietal infarct with minimal high attenuation consistent with hemorrhage as demonstrated on MR examination of the previous day. Old right occipital infarct. Old left cerebellar hemispheric infarct.
[2017-02-14] MEDS ORDERED: Sodium Chloride 0.9% 1,000 ML IV SCH (11:15)
--- NOTE | 2017-02-14 11:15 | CP.PCM.PN ---
Subjective - Date & Time of Evaluation Date of Evaluation: 02/14/17 Time of Evaluation: 11:12 - Subjective Subjective: Prelim MEGA Objective - Vital Signs/Intake and Output Vital Signs (last 24 hours): Temp Pulse Resp BP Pulse Ox 98 F 70 17 107/75 100 02/14/17 07:10 02/14/17 07:10 02/14/17 07:10 02/14/17 07:10 02/14/17 07:10 Intake and Output: 02/14/17 02/14/17 06:59 18:59 Intake Total 600 Balance 600 - Medications Medications: Current Medications Aspirin (Aspirin Chewable) 81 mg PO DAILY [facility] Last Admin: 02/13/17 10:04 Dose: 81 mg Famotidine (Pepcid) 20 mg PO BID [facility] Last Admin: 02/14/17 09:26 Dose: Not Given Heparin Sodium (Porcine) (Heparin) 5,000 units SC Q12 [facility] Last Admin: 02/13/17 10:04 Dose: 5,000 units Insulin Aspart (Novolog) 0 unit SC [facility] PRN Reason: Protocol Last Admin: 02/14/17 08:05 Dose: Not Given Insulin Glargine (Lantus) 10 unit SC HS [facility] Last Admin: 02/13/17 22:22 Dose: 10 units Lisinopril (Zestril) 5 mg PO DAILY [facility] Last Admin: 02/14/17 09:37 Dose: 5 mg Rosuvastatin Calcium (Crestor) 10 mg PO HS [facility] Last Admin: 02/12/17 22:03 Dose: 10 mg - Labs Labs: 02/14/17 07:58 02/14/17 07:58 PT 11.7 SECONDS (9.7-12.2) 02/10/17 15:53 INR 1.0 02/10/17 15:53 APTT 28 SECONDS (21-34) 02/10/17 15:53 Assessment and Plan - Assessment and Plan (Free Text) Assessment: MEGA prelim report EF 65% Concentric LVH No evidence of thrombus in the LA or left atrial appendage, BIENVENIDO emptying velocity is >50 cm/s No ASD, bubble study is negative x 3 for PFO 4 Pulmonary Veins are seen, there is normal flow Stage II atheroma on transverse Aorta Ascending aorta is 3.3 cm No vegetationsMN are seen on any valves Mild MR, Mild TR, No PI NO AI Impression: Acute CVA, there is no cardioembolic source to cryptogenic stroke; ASHD Plan: High dose statin, anti platelet as per neurology
[2017-02-14 16:23] VITALS: BP 117/77; RESP 20; O2SAT 99
--- NOTE | 2017-02-14 17:28 | CARD ---
APPROVED REPORT EKG Measurement Heart [id number] <Conclusion> Normal sinus rhythm with sinus arrhythmia Normal ECG
[2017-02-14 18:54] VITALS: PULSE 53
[2017-02-14 21:55] LABS: CARDIOLIPIN AB (IGA) <11 APL (<=11)
[2017-02-15 05:43] LABS: PHOSPHATIDYLSERINE AB IGA <20 U/mL (<20); PHOSPHATIDYLSERINE AB IGM <25 U/mL (<25)
--- NOTE | 2017-02-15 07:20 | CP.PCM.DIS ---
<Jaclyn Wallis - Last Filed: 03/04/17 14:21> Provider - Provider Date of Admission: 02/10/17 16:17 Attending physician: Steven Bay MD Consults: Dr Wise cardiology Dr Velazquez cardiology Dr Ventura neurology Time Spent in preparation of Discharge (in minutes): 45 Hospital Course - Lab Results Lab Results: Most Recent Lab Values WBC 6.8 K/uL (4.8-10.8) 02/14/17 07:58 RBC 4.86 Mil/uL (4.40-5.90) 02/14/17 07:58 Hgb 15.2 g/dL (12.0-18.0) 02/14/17 07:58 Hct 42.6 % (35.0-51.0) 02/14/17 07:58 MCV 87.6 fL (80.0-94.0) 02/14/17 07:58 MCH 31.2 pg (27.0-31.0) H 02/14/17 07:58 MCHC 35.6 g/dL (33.0-37.0) 02/14/17 07:58 RDW 12.1 % (11.5-14.5) 02/14/17 07:58 Plt Count 228 K/uL (130-400) 02/14/17 07:58 MPV 9.5 fL (7.2-11.7) 02/14/17 07:58 Neut % (Auto) 52.2 % (50.0-75.0) 02/14/17 07:58 Lymph % (Auto) 35.2 % (20.0-40.0) 02/14/17 07:58 Barton % (Auto) 7.4 % (0.0-10.0) 02/14/17 07:58 Eos % (Auto) 4.0 % (0.0-4.0) 02/14/17 07:58 Baso % (Auto) 1.2 % (0.0-2.0) 02/14/17 07:58 Neut # 3.6 K/uL (1.8-7.0) 02/14/17 07:58 Lymph # 2.4 K/uL (1.0-4.3) 02/14/17 07:58 Barton # 0.5 K/uL (0.0-0.8) 02/14/17 07:58 Eos # 0.3 K/uL (0.0-0.7) 02/14/17 07:58 Baso # 0.1 K/uL (0.0-0.2) 02/14/17 07:58 PT 11.7 SECONDS (9.7-12.2) 02/10/17 15:53 INR 1.0 02/10/17 15:53 APTT 28 SECONDS (21-34) 02/10/17 15:53 Protein C Activity 156 % (70-180) 02/10/17 07:24 Protein S Activity 102 % (70-150) 02/10/17 07:24 Protein S Antigen 99 % (70-140) 02/10/17 07:24 Antithrombin III Activ 91 % activity (80-120) 02/10/17 07:24 Factor V see note 02/10/17 07:24 Sodium 136 mmol/L (132-148) 02/14/17 07:58 Potassium 4.2 mmol/L (3.6-5.2) 02/14/17 07:58 Chloride 99 mmol/L (98-107) 02/14/17 07:58 Carbon Dioxide 27 mmol/L (22-30) 02/14/17 07:58 Anion Gap 15 (10-20) 02/14/17 07:58 BUN 16 mg/dL (9-20) 02/14/17 07:58 Creatinine 0.7 MG/DL (0.8-1.5) L 02/14/17 07:58 Est GFR ( Amer) > 60 02/14/17 07:58 Est GFR (Non-Af Amer) > 60 02/14/17 07:58 POC Glucose (mg/dL) 242 mg/dL (65-110) H 02/14/17 16:55 Random Glucose 204 mg/dL (75-110) H 02/14/17 07:58 Hemoglobin A1c 10.4 % (4.2-6.5) H 02/10/17 15:53 Calcium 9.0 mg/dl (8.6-10.4) 02/14/17 07:58 Phosphorus 4.4 mg/dL (2.5-4.5) 02/14/17 07:58 Magnesium 1.8 mg/dL (1.6-2.3) 02/14/17 07:58 Total Bilirubin 1.1 mg/dL (0.2-1.3) 02/14/17 07:58 AST 55 U/L (17-59) 02/14/17 07:58 ALT 38 U/L (21-72) 02/14/17 07:58 Alkaline Phosphatase 136 U/L (38-126) H 02/14/17 07:58 Total Creatine Kinase 75 U/L (55-170) 02/11/17 02:13 CK-MB (Mass) 0.72 ng/mL (0.0-3.38) 02/11/17 02:13 Troponin I 0.0200 ng/mL (0.00-0.120) 02/10/17 14:33 Troponin I, Quant 0.0290 ng/mL (0.00-0.120) 02/11/17 02:13 Total Protein 7.2 g/dL (6.3-8.3) 02/14/17 07:58 Albumin 4.1 g/dL (3.5-5.0) 02/14/17 07:58 Globulin 3.1 gm/dL (2.2-3.9) 02/14/17 07:58 Albumin/Globulin Ratio 1.3 (1.0-2.1) 02/14/17 07:58 Triglycerides 254 mg/dL (0-149) H 02/10/17 15:53 Cholesterol 218 mg/dL (0-199) H 02/10/17 15:53 LDL Cholesterol Direct 154 mg/dL (0-129) H 02/10/17 15:53 HDL Cholesterol 47 mg/dL (30-70) 02/10/17 15:53 [id number]-7-[id number] Ab 70 EMIR (<=20) H 02/10/17 07:24 Beta-2 GPI IgG Ab <9 SGU (<=20) 02/10/17 07:24 Beta-2 GPI IgM Ab <9 SMU (<=20) 02/10/17 07:24 Phosphatidylserine IgG <10 U/mL (<10) 02/10/17 07:24 Phosphatidylserine IgA <20 U/mL (<20) 02/10/17 07:24 Phosphatidylserine IgM <25 U/mL (<25) 02/10/17 07:24 Anti-Phospholipid Intrp see note 02/10/17 07:24 Anti-Cardiolipin IgG Ab <14 GPL (<=14) 02/10/17 07:24 Anti-Cardiolipin IgA Ab <11 APL (<=11) 02/10/17 07:24 Anti-Cardiolipin IgM Ab <12 MPL (<=12) 02/10/17 07:24 - Hospital Course Hospital Course: Upon Admission 51M with PMHx HTN, DM, hyperlipidemia presenting with unsteadiness and difficulty coordinating for 3 days. Patient states that these symptoms began randomly and he noticed it especially when driving or trying to lift something from the floor. When driving he would notice that when trying to turn on the blinker he would have a difficult time differentiating how to turn on left and right turn signals and when trying to lift objects from the floor he would often miss. He stated nothing made this better/worse. He denied any falls but reported feeling dizzy at times. He also reported one episode when he had a headache that was located on the top of his head and rated 5/10 which was intermittent. He denied any confusion but felt like his head was in the clouds. This is the first time he had such a sequale of symptoms. Patient also denied weakness, chest pain, palpitations, SOB, cough, abdominal pain, nausea, vomiting , bowel/bladder complaints, pain/swelling in legs b/l. He denied travel history and sick contacts. Patient admitted to [facility]. Dr Ventura neurology was consulted. CT head on admission showed no acute intracranial abnl; no significant findings to account for clinical presentation; old infarcts R occipital lobe, R parietal lobe. Repeat head CT showed acute R parietal infarct with minimal high attenuation consistent with hemorrhage as demonstrated on MR examination of previous day. Old right occipital infarct. Old left cereballar hemispheric infarct. MRI brain w/o contrast showed acute hemorrhagic infarction in R posterior parietal lobe involving MCA territory; Cystic encephalomalacia and gliosis in the R occipital lobe, a sequela of remote right WOUND CARE SPECIALIST territory infarction; old infarctions in the R paramedian and cortical frontal lobe and L cerebellar hemisphere. MRA head /neck were unremarkable. Patient;s JED panel was negative x 3 and EKG showed no acute changes x 3. Patient had a MEGA and echo bubble study which was to be followed up outpatient. on day of discharge patient was deemed medically stable for discharge. 1) CVA: patient started on new medications and to follow up outpatient 2) HTN: continue medication regimen on discharge 3) DM2: continue medication regimen on discharge 4) Hx hypercholesterolemia: continue medication regimen on discharge Upon Discharge Patient stable for discharge home as per Dr. Bay Patient to take medications as prescribed Patient to follow up with [facility] within 7 days and to follow up with neurology Dr. Ventura within 10 days. Patient to return to ER immediately if symptoms persist or worsen Instructions discussed with patient who understands and agrees. Discharge Exam - Head Exam Head Exam: ATRAUMATIC, NORMAL INSPECTION, NORMOCEPHALIC - Eye Exam Eye Exam: EOMI, Normal appearance, PERRL. absent: Conjunctival injection, Scleral icterus Pupil Exam: NORMAL ACCOMODATION, PERRL - ENT Exam ENT Exam: Mucous Membranes Moist - Neck Exam Neck exam: Full Rom, Normal Inspection - Respiratory Exam Respiratory Exam: Clear to PA & Lateral, NORMAL BREATHING PATTERN. absent: Accessory Muscle Use, Rales, Rhonchi, Wheezes, Respiratory Distress - Cardiovascular Exam Cardiovascular Exam: REGULAR RHYTHM, RRR, +S1, +S2 - GI/Abdominal Exam GI & Abdominal Exam: Normal Bowel Sounds, Soft. absent: Firm, Guarding, Tenderness - Extremities Exam Extremities exam: normal capillary refill, normal inspection, pedal pulses present - Back Exam Back exam: NORMAL INSPECTION. absent: CVA tenderness (L), CVA tenderness (R) - Neurological Exam Neurological exam: Alert, CN II-XII Intact, Oriented x3 - Psychiatric Exam Psychiatric exam: Normal Affect, Normal Mood - Skin Skin Exam: Dry, Intact, Normal Color, Warm Discharge Plan - Discharge Medications Prescriptions: Aspirin [Aspirin Chewable] 81 mg PO DAILY #30 glyBURIDE [Micronase] 2.5 mg PO DAILY #30 tab Lisinopril [Zestril] 5 mg PO DAILY #30 tab MetFORMIN [glucoPHAGE] 1,000 mg PO BID #60 tab Rosuvastatin Calcium [Crestor] 40 mg PO HS #30 tab - Follow Up Plan Condition: FAIR Disposition: HOME/ ROUTINE Instructions: Lisinopril (By mouth), Glyburide (By mouth), Aspirin (By mouth), Metformin (By mouth), Rosuvastatin (By mouth), Heart Healthy Diet (DC), Stroke ( DC) Additional Instructions: Patient to take medications as prescribed Patient to follow up with [facility] within 7 days and to follow up with neurology Dr. Ventura within 10 days. Patient to return to ER immediately if symptoms persist or worsen Instructions discussed with patient who understands and agrees. Referrals: [facility] [Outside] Abelardo Ventura MD [Staff Provider] - <PhuSteven - Last Filed: 03/22/17 12:12> Provider - Provider Date of Admission: 02/10/17 16:17 Attending physician: Gladis Hoffman, [facility] Course - Lab Results Lab Results: Most Recent Lab Values WBC 6.8 K/uL (4.8-10.8) 02/14/17 07:58 RBC 4.86 Mil/uL (4.40-5.90) 02/14/17 07:58 Hgb 15.2 g/dL (12.0-18.0) 02/14/17 07:58 Hct 42.6 % (35.0-51.0) 02/14/17 07:58 MCV 87.6 fL (80.0-94.0) 02/14/17 07:58 MCH 31.2 pg (27.0-31.0) H 02/14/17 07:58 MCHC 35.6 g/dL (33.0-37.0) 02/14/17 07:58 RDW 12.1 % (11.5-14.5) 02/14/17 07:58 Plt Count 228 K/uL (130-400) 02/14/17 07:58 MPV 9.5 fL (7.2-11.7) 02/14/17 07:58 Neut % (Auto) 52.2 % (50.0-75.0) 02/14/17 07:58 Lymph % (Auto) 35.2 % (20.0-40.0) 02/14/17 07:58 Barton % (Auto) 7.4 % (0.0-10.0) 02/14/17 07:58 Eos % (Auto) 4.0 % (0.0-4.0) 02/14/17 07:58 Baso % (Auto) 1.2 % (0.0-2.0) 02/14/17 07:58 Neut # 3.6 K/uL (1.8-7.0) 02/14/17 07:58 Lymph # 2.4 K/uL (1.0-4.3) 02/14/17 07:58 Barton # 0.5 K/uL (0.0-0.8) 02/14/17 07:58 Eos # 0.3 K/uL (0.0-0.7) 02/14/17 07:58 Baso # 0.1 K/uL (0.0-0.2) 02/14/17 07:58 PT 11.7 SECONDS (9.7-12.2) 02/10/17 15:53 INR 1.0 02/10/17 15:53 APTT 28 SECONDS (21-34) 02/10/17 15:53 Protein C Antigen 112 % (70-140) 02/10/17 07:24 Protein C Activity 156 % (70-180) 02/10/17 07:24 Protein S Activity 102 % (70-150) 02/10/17 07:24 Protein S Antigen 99 % (70-140) 02/10/17 07:24 Antithrombin III Activ 91 % activity (80-120) 02/10/17 07:24 Factor V see note 02/10/17 07:24 Sodium 136 mmol/L (132-148) 02/14/17 07:58 Potassium 4.2 mmol/L (3.6-5.2) 02/14/17 07:58 Chloride 99 mmol/L (98-107) 02/14/17 07:58 Carbon Dioxide 27 mmol/L (22-30) 02/14/17 07:58 Anion Gap 15 (10-20) 02/14/17 07:58 BUN 16 mg/dL (9-20) 02/14/17 07:58 Creatinine 0.7 MG/DL (0.8-1.5) L 02/14/17 07:58 Est GFR ( Amer) > 60 02/14/17 07:58 Est GFR (Non-Af Amer) > 60 02/14/17 07:58 POC Glucose (mg/dL) 242 mg/dL (65-110) H 02/14/17 16:55 Random Glucose 204 mg/dL (75-110) H 02/14/17 07:58 Hemoglobin A1c 10.4 % (4.2-6.5) H 02/10/17 15:53 Calcium 9.0 mg/dl (8.6-10.4) 02/14/17 07:58 Phosphorus 4.4 mg/dL (2.5-4.5) 02/14/17 07:58 Magnesium 1.8 mg/dL (1.6-2.3) 02/14/17 07:58 Total Bilirubin 1.1 mg/dL (0.2-1.3) 02/14/17 07:58 AST 55 U/L (17-59) 02/14/17 07:58 ALT 38 U/L (21-72) 02/14/17 07:58 Alkaline Phosphatase 136 U/L (38-126) H 02/14/17 07:58 Total Creatine Kinase 75 U/L (55-170) 02/11/17 02:13 CK-MB (Mass) 0.72 ng/mL (0.0-3.38) 02/11/17 02:13 Troponin I 0.0200 ng/mL (0.00-0.120) 02/10/17 14:33 Troponin I, Quant 0.0290 ng/mL (0.00-0.120) 02/11/17 02:13 Total Protein 7.2 g/dL (6.3-8.3) 02/14/17 07:58 Albumin 4.1 g/dL (3.5-5.0) 02/14/17 07:58 Globulin 3.1 gm/dL (2.2-3.9) 02/14/17 07:58 Albumin/Globulin Ratio 1.3 (1.0-2.1) 02/14/17 07:58 Triglycerides 254 mg/dL (0-149) H 02/10/17 15:53 Cholesterol 218 mg/dL (0-199) H 02/10/17 15:53 LDL Cholesterol Direct 154 mg/dL (0-129) H 02/10/17 15:53 HDL Cholesterol 47 mg/dL (30-70) 02/10/17 15:53 Eroj-8-Oljfcifltjhr Ab 70 EMIR (<=20) H 02/10/17 07:24 Beta-2 GPI IgG Ab <9 SGU (<=20) 02/10/17 07:24 Beta-2 GPI IgM Ab <9 SMU (<=20) 02/10/17 07:24 Phosphatidylserine IgG <10 U/mL (<10) 02/10/17 07:24 Phosphatidylserine IgA <20 U/mL (<20) 02/10/17 07:24 Phosphatidylserine IgM <25 U/mL (<25) 02/10/17 07:24 Anti-Phospholipid Intrp see note 02/10/17 07:24 Anti-Cardiolipin IgG Ab <14 GPL (<=14) 02/10/17 07:24 Anti-Cardiolipin IgA Ab <11 APL (<=11) 02/10/17 07:24 Anti-Cardiolipin IgM Ab <12 MPL (<=12) 02/10/17 07:24 Attending/Attestation - Attestation I have personally seen and examined this patient.: Yes I have fully participated in the care of the patient.: Yes I have reviewed all pertinent clinical information, including history, physical exam and plan: Yes Notes (Text): Patient Seen and examined with the resident. Agree with the resident's evaluation, assessment and plan. 1) CVA Acute Hemorrhagic infarction of right posterior lobe involving MCA territory. 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
--- NOTE | 2017-02-15 12:51 | PQF CVATIA ---
This form is a permanent part of the medical record To Gladis Hoffman MD, 51 yr. old male admitted with PMHx of DM. HTN Hyperlipidemia, presenting with unsteadiness and difficulty coordinating. CT Head - No acute intracranial abnormality ; No significant findings to account for clinical presentation; Old infarct R occipital lobes, R parietal Lobe. Please clarify if CVA was ruled in or ruled out. Please provide your Final Dignosis, if possible. Thank you, Clarification of your documentation is requested to better reflect the severity of illness and intensity of treatment of your patient. Indicators present: [] Altered mental status [] Aphasia [] Dysphagia [] Dysphasia [] Facial droop/numbness [] Gait disturbance [] Hemiparesis/plegia [] Speech impairment [] Weakness [] Neuro Consult [] CT/MRI Findings [] Other: [] Location in the medical record that reflects the above clinical findings: [] Treatment Provided: [] PHYSICIAN'S RESPONSE Based on your medical judgment of the clinical indicators outlined above, are you treating this patient for a known or suspected: [x] Acute Cerebrovascular Accident (CVA) type hemorrhagic Please specify the artery not known. Present On Admission (POA) Indicator: Please note patient had a hemorrhagic stroke as seen on MRI. [x] Present at the time of admission In responding to this query, please exercise your independent professional judgment. The fact that a question is asked does not imply that any particular answer is desired or expected. Thank you for your clarification on this documentation. If you have any questions please call:[ ] * Thank you, [ Roslyn Dukes, RONALD ] drug coordinator MARVEL
== END 2017-02-14 19:20 | disposition home or self-care (01) | DRG 810 ==
LOC: C.ER 13:42 → C.9E 16:17 → C.6T 17:07
PROVIDERS: ADMIT Internal Medicine; ATTEND Hospitalist
DX: I61.1 Nontraumatic intracerebral hemorrhage in hemisphere, cortical (principal); I10 Essential (primary) hypertension; E11.9 Type 2 diabetes mellitus without complications; R27.9 Unspecified lack of coordination; E78.5 Hyperlipidemia, unspecified; E78.00 Pure hypercholesterolemia, unspecified; Z91.81 History of falling; I25.10 Atherosclerotic heart disease of native coronary artery without angina pectoris; Z79.4 Long term (current) use of insulin

== ENCOUNTER 2018-03-27 14:28 | Inpatient (IN) | payer OTHER ==
[2018-03-27] MEDS ORDERED: Sodium Chloride 0.9% 1,000 ML IV ONE (15:00)
--- NOTE | 2018-03-27 15:10 | C.PDOC ---
History Of Present Illness 52 y/o male with PMHx of diabetes presents to the ER complaining of darkening vision that began today. Of note, patient was seen by PMD Dr. Kessler yesterday due to elevated blood sugar of 600 and received a Basaglar injection in the office. Patient had previously been on oral medication, and yesterday was given prescription to continue injections. Today patient gave himself an injection in the morning as prescribed. He began feeling his vision darkening in both eyes for the past 3 days. States he feels well otherwise, no other symptoms. Denies associated headache, blurred vision, weakness,palpitations, SOB, chest pain, or dizziness. Time Seen by Provider: 03/27/18 14:52 Chief Complaint (Nursing): High Blood Sugar History Per: Patient History/Exam Limitations: no limitations Onset/Duration Of Symptoms: Hrs Current Symptoms Are (Timing): Still Present Current Diabetic Medications: Oral Medication, Other (Vasaguar) Past Medical History Reviewed: Historical Data, Nursing Documentation, Vital Signs Vital Signs: Last Vital Signs Temp 99.0 F 03/27/18 14:31 Pulse 92 H 03/27/18 14:31 Resp 18 03/27/18 14:31 BP 130/80 03/27/18 14:31 Pulse Ox 98 03/27/18 15:13 - Medical History PMH: Diabetes, HTN, Hypercholesterolemia Surgical History: No Surg Hx Family History: States: Unknown Family Hx - Social History Hx Tobacco Use: No Hx Alcohol Use: Yes Hx Substance Use: No Review Of Systems Except As Marked, All Systems Reviewed And Found Negative. Constitutional: Negative for: Fever Eyes: Positive for: Vision Change (dark vision). Negative for: Other (blurred vision) Cardiovascular: Negative for: Chest Pain, Palpitations Respiratory: Negative for: Shortness of Breath Neurological: Negative for: Headache, Dizziness Physical Exam - Physical Exam Appears: Non-toxic, No Acute Distress Skin: Normal Color, Warm, Dry Head: Atraumatic, Normacephalic Eye(s): bilateral: Normal Inspection (no nystagmus), PERRL, EOMI Nose: Normal Oral Mucosa: Moist Neck: Normal ROM, Supple Chest: Symmetrical Cardiovascular: Rhythm Regular, No Murmur Respiratory: Normal Breath Sounds, No Rales, No Rhonchi, No Wheezing Gastrointestinal/Abdominal: Soft, No Tenderness Extremity: Bilateral: Atraumatic, Normal Color And Temperature, Normal ROM Pulses: Left Carotid: Normal, Right Carotid: Normal Neurological/Psych: Oriented x3, Normal Speech, Normal Cognition, Normal Cranial Nerves, Normal Motor, Normal Sensation, Normal Reflexes Gait: Steady Extremity: Right: No Drift, Left: No Drift, Upper: No Drift, Lower: No Drift ED Course And Treatment - Laboratory Results Result Diagrams: 03/27/18 15:10 03/27/18 15:10 Lab Interpretation: Abnormal (WBC 11.0, Glucose 353, BUN 25) O2 Sat by Pulse Oximetry: 98 (RA) Pulse Ox Interpretation: Normal - CT Scan/US CT Head Other Rad Studies (CT/US): Read By Radiologist, Radiology Report Reviewed CT/US Interpretation: Accession No. : [id number]. Patient Name / ID : VISH DOE / [id number]. Exam Date : 03/27/2018 15:36:36 ( Approved ). Study Comment : Sex / Age : M / 52Y. Creator : Gaye Orozco. Dictator : Chuy Lopez MD. Thermal Technician : Lozenge Maker : Chuy Lopez MD. Approver2 : Report Date : 03/27/2018 15:46:30. My Comment : . Date of service: 03/27/2018. PROCEDURE: CT HEAD WITHOUT CONTRAST. HISTORY: R/O Bleed. COMPARISON: CT head dated 02/14/2017. TECHNIQUE: Axial computed tomography images were obtained through the head/brain without intravenous contrast. Radiation dose: Total exam DLP = 895.7 mGy-cm. This CT exam was performed using one or more of the following dose reduction techniques: Automated exposure control, adjustment of the mA and/or kV according to patient size, and/or use of iterative reconstruction technique. FINDINGS: HEMORRHAGE: Areas of high attenuation within the right frontal lobe infarction for which hemorrhage cannot be excluded. Tiny foci of high attenuation within the left occipital lobe for which petechial hemorrhage cannot excluded. BRAIN: Mild low density in the left occipital lobe consistent with late acute/early subacute infarction. Old right frontal lobe infarction, new since the prior study. Old right occipital and posterior right parietal infarctions. Mild atrophy. Lacunar infarction in the right basal ganglia and caudate head. VENTRICLES: Unremarkable. No hydrocephalus. CALVARIUM: Unremarkable. PARANASAL SINUSES: Unremarkable as visualized. No significant inflammatory changes. MASTOID AIR CELLS: Unremarkable as visualized. No inflammatory changes. OTHER FINDINGS: None. IMPRESSION: Left occipital late acute/ early subacute infarction. Tiny foci of high attenuation the which petechial hemorrhage cannot be excluded. Old right frontal lobe infarct which is new since the prior study. Areas of high attenuation within this for which hemorrhage cannot be excluded. Old infarcts in the right occipital and right posterior parietal lobes. Reevaluation Time: 16:19 Reassessment Condition: Unchanged - Physician Consult Information Time Consulting Physician Contacted: 16:19 Physician Contacted: Robin Kessler Outcome Of Conversation: Patient to be admitted for possible new cerebral infarcts with questionable petechial hemmorhage. NIHSS Stroke Scale - Date/Time Evaluation Performed Date Performed: 03/27/18 Time Performed: 15:00 - How Severe is the Stoke Level of Consciousness: 0=Alert LOC to Questions: 0=Both comments correct LOC to commands: 0=Obeys both correctly Best Gaze: 0=Normal Visual: 0=No visual loss Facial: 0=Normal Motor Arm - Left: 0=No drift Motor Arm - Right: 0=No drift Motor Leg - Left: 0=No drift Motor Leg - Right: 0=No drift Limb Ataxia: 0=Absent Sensory: 0=Normal Best Language: 0=No aphasia Dysarthia: 0=Normal articulation Extinction & Inattention (Neglect): 0=Normal, no object Score: 0 Severity Of Stroke: 0= No Stroke Medical Decision Making Medical Decision Making: Time: 15:00 Initial Plan: --Blood work --Urinalysis --IV fluids --CT Head Disposition - Disposition Disposition: HOSPITALIZED Disposition Time: 16:20 Condition: STABLE - POA Present On Arrival: Poor Glycemic Control - Clinical Impression Clinical Impression: CVA (cerebral vascular accident), Visual disturbance as complication of stroke - Scribe Statement The provider has reviewed the documentation as recorded by the Roni Stanton Provider Attestation: All medical record entries made by the Roni were at my direction and personally dictated by me. I have reviewed the chart and agree that the record accurately reflects my personal performance of the history, physical exam, medical decision making, and the department course for this patient. I have also personally directed, reviewed, and agree with the discharge instructions and disposition.
[2018-03-27] MEDS ORDERED: Sodium Chloride 0.9% 1,000 ML ONE (15:11)
[2018-03-27 15:15] LABS: BASO # 0.1 K/uL (0.0-0.2); BASO % 0.5 % (0.0-2.0); EOS # 0.1 K/uL (0.0-0.7); HEMOGLOBIN 15.5 g/dL (12.0-18.0); LYMPH # 2.6 K/uL (1.0-4.3); LYMPH % 23.6 % (20.0-40.0); MEAN CELL VOLUME 89.4 fL (80.0-94.0); MEAN CORPUSCULAR HEMOGLOBIN 32.1 pg (27.0-31.0); MEAN CORPUSCULAR HGB CONC 35.9 g/dL (33.0-37.0); MEAN PLATELET VOLUME 9.4 fL (7.2-11.7); MONO # 0.6 K/uL (0.0-0.8); MONO % 5.6 % (0.0-10.0); NEUT # 7.6 K/uL (1.8-7.0); NEUT % 69.3 % (50.0-75.0); RBC 4.82 Mil/uL (4.40-5.90); RED CELL DISTRIBUTION WIDTH 12.6 % (11.5-14.5)
[2018-03-27 15:19] LABS: SQUAMOUS EPITHIAL < 1 /hpf (0-5); URINE BILIRUBIN NEGATIVE (NEGATIVE); URINE BLOOD NEGATIVE (NEGATIVE); URINE CLARITY Clear (Clear); URINE COLOR Yellow (YELLOW); URINE GLUCOSE (UA) 3+ mg/dL (Normal); URINE LEUKOCYTE ESTERASE NEG Leu/uL (Negative); URINE PROTEIN NEGATIVE (NEGATIVE); URINE UROBILINOGEN NORMAL mg/dL (0.2-1.0)
[2018-03-27 15:35] LABS: ALB/GLOB RATIO 1.7 (1.0-2.1); ALBUMIN 4.8 g/dL (3.5-5.0); ALT/SGPT 30 U/L (21-72); AST/SGOT 24 U/L (17-59); BLOOD UREA NITROGEN 25 mg/dL (9-20); CALCIUM 9.5 mg/dl (8.6-10.4); GFR AFRICAN-AMERICAN > 60; GFR NON-AFRICAN AMERICAN > 60
--- NOTE | 2018-03-27 16:12 | CT ---
Date of service: 03/27/2018 PROCEDURE: CT HEAD WITHOUT CONTRAST. HISTORY: R/O Bleed COMPARISON: CT head dated 02/14/2017. TECHNIQUE: Axial computed tomography images were obtained through the head/brain without intravenous contrast. Radiation dose: Total exam DLP = 895.7 mGy-cm. This CT exam was performed using one or more of the following dose reduction techniques: Automated exposure control, adjustment of the mA and/or kV according to patient size, and/or use of iterative reconstruction technique. FINDINGS: HEMORRHAGE: Areas of high attenuation within the right frontal lobe infarction for which hemorrhage cannot be excluded. Tiny foci of high attenuation within the left occipital lobe for which petechial hemorrhage cannot excluded. BRAIN: Mild low density in the left occipital lobe consistent with late acute/early subacute infarction. Old right frontal lobe infarction, new since the prior study. Old right occipital and posterior right parietal infarctions. Mild atrophy. Lacunar infarction in the right basal ganglia and caudate head. VENTRICLES: Unremarkable. No hydrocephalus. CALVARIUM: Unremarkable. PARANASAL SINUSES: Unremarkable as visualized. No significant inflammatory changes. MASTOID AIR CELLS: Unremarkable as visualized. No inflammatory changes. OTHER FINDINGS: None. IMPRESSION: Left occipital late acute/ early subacute infarction. Tiny foci of high attenuation the which petechial hemorrhage cannot be excluded Old right frontal lobe infarct which is new since the prior study. Areas of high attenuation within this for which hemorrhage cannot be excluded. Old infarcts in the right occipital and right posterior parietal lobes. Findings conveyed to Dr. Skinner by Dr. Crane at 4:05 p.m. on 03/27/2018.
[2018-03-27 20:20] LABS: HDL CHOLESTEROL 29 mg/dL (30-70)
[2018-03-27 20:31] LABS: LDL CHOLESTEROL 97 mg/dL (0-129)
[2018-03-27] MEDS: (Novolin R) Insulin Human Regular 100 units/ml vial SC SCH (22:04)
--- NOTE | 2018-03-27 22:36 | CP.PCM.HP ---
History of Present Illness - History of Present Illness History of Present Illness: History Of Present Illness 52 y/o male with PMHx of diabetes presents to the ER complaining of darkening vision that began today. Of note, patient was seen by PMD Dr. Kessler yesterday due to elevated blood sugar of 600 and received a Basaglar injection in the office. Patient had previously been on oral medication, and yesterday was given prescription to continue injections. Today patient gave himself an injection in the morning as prescribed. He began feeling his vision darkening in both eyes for the past 3 days. States he feels well otherwise, no other symptoms. Denies associated headache, blurred vision, weakness,palpitations, SOB, chest pain, or dizziness. Past Patient History - Past Social History Smoking Status: Never Smoked - CARDIAC Hx Hypercholesterolemia: Yes Hx Hypertension: Yes - ENDOCRINE/METABOLIC Hx Diabetes Mellitus Type 2: Yes - MUSCULOSKELETAL/RHEUMATOLOGICAL Hx Falls: No - PSYCHIATRIC Hx Substance Use: No - SURGICAL HISTORY Hx Surgeries: No - ANESTHESIA Hx Anesthesia: No Meds Allergies/Adverse Reactions: Allergies Allergy/AdvReac Type Severity Reaction Status Date / Time No Known Allergies Allergy Unverified 02/10/17 13:48 Results - Vital Signs Recent Vital Signs: Last Vital Signs Temp 98.7 F 03/27/18 21:21 Pulse 68 03/27/18 21:21 Resp 20 03/27/18 21:21 BP 147/80 03/27/18 21:21 Pulse Ox 100 03/27/18 21:21 - Labs Result Diagrams: 03/27/18 15:10 03/27/18 15:10 Labs: Laboratory Results - last 24 hr 03/27/18 03/27/18 03/27/18 14:40 15:10 15:10 WBC 11.0 H D RBC 4.82 Hgb 15.5 Hct 43.0 MCV 89.4 MCH 32.1 H MCHC 35.9 RDW 12.6 Plt Count 229 MPV 9.4 Neut % (Auto) 69.3 Lymph % (Auto) 23.6 [place] % (Auto) 5.6 Eos % (Auto) 1.0 Baso % (Auto) 0.5 Neut # (Auto) 7.6 H Lymph # (Auto) 2.6 [place] # (Auto) 0.6 Eos # (Auto) 0.1 Baso # (Auto) 0.1 Sodium Potassium Chloride Carbon Dioxide Anion Gap BUN Creatinine Est GFR ( Amer) Est GFR (Non-Af Amer) POC Glucose (mg/dL) 367 H Random Glucose Hemoglobin A1c Calcium Magnesium Total Bilirubin AST ALT Alkaline Phosphatase Total Protein Albumin Globulin Albumin/Globulin Ratio Triglycerides Cholesterol LDL Cholesterol Direct HDL Cholesterol Urine Color Yellow Urine Clarity Clear Urine pH 5.0 Ur Specific [place] 1.025 Urine Protein Negative Urine Glucose (UA) 3+ H Urine Ketones Trace Urine Blood Negative Urine Nitrate Negative Urine Bilirubin Negative Urine Urobilinogen Normal Ur Leukocyte Esterase Neg Urine WBC (Auto) 1 Urine RBC (Auto) 1 Ur Squamous Epith Cells < 1 03/27/18 03/27/18 03/27/18 15:10 20:00 20:00 WBC RBC Hgb Hct MCV MCH MCHC RDW Plt Count MPV Neut % (Auto) Lymph % (Auto) [place] % (Auto) Eos % (Auto) Baso % (Auto) Neut # (Auto) Lymph # (Auto) [place] # (Auto) Eos # (Auto) Baso # (Auto) Sodium 133 Potassium 3.9 Chloride 95 L Carbon Dioxide 24 Anion Gap 18 BUN 25 H Creatinine 0.9 Est GFR ( Amer) > 60 Est GFR (Non-Af Amer) > 60 POC Glucose (mg/dL) Random Glucose 353 H Hemoglobin A1c 11.8 H Calcium 9.5 Magnesium 1.5 L Total Bilirubin 1.5 H AST 24 ALT 30 Alkaline Phosphatase 182 H Total Protein 7.6 Albumin 4.8 Globulin 2.8 Albumin/Globulin Ratio 1.7 Triglycerides 364 H D Cholesterol 183 LDL Cholesterol Direct 97 HDL Cholesterol 29 L Urine Color Urine Clarity Urine pH Ur Specific [place] Urine Protein Urine Glucose (UA) Urine Ketones Urine Blood Urine Nitrate Urine Bilirubin Urine Urobilinogen Ur Leukocyte Esterase Urine WBC (Auto) Urine RBC (Auto) Ur Squamous Epith Cells 03/27/18 21:57 WBC RBC Hgb Hct MCV MCH MCHC RDW Plt Count MPV Neut % (Auto) Lymph % (Auto) [place] % (Auto) Eos % (Auto) Baso % (Auto) Neut # (Auto) Lymph # (Auto) [place] # (Auto) Eos # (Auto) Baso # (Auto) Sodium Potassium Chloride Carbon Dioxide Anion Gap BUN Creatinine Est GFR ( Amer) Est GFR (Non-Af Amer) POC Glucose (mg/dL) 169 H Random Glucose Hemoglobin A1c Calcium Magnesium Total Bilirubin AST ALT Alkaline Phosphatase Total Protein Albumin Globulin Albumin/Globulin Ratio Triglycerides Cholesterol LDL Cholesterol Direct HDL Cholesterol Urine Color Urine Clarity Urine pH Ur Specific [place] Urine Protein Urine Glucose (UA) Urine Ketones Urine Blood Urine Nitrate Urine Bilirubin Urine Urobilinogen Ur Leukocyte Esterase Urine WBC (Auto) Urine RBC (Auto) Ur Squamous Epith Cells
[2018-03-28] MEDS: (Novolin R) Insulin Human Regular 100 units/ml vial SC SCH ×4 (08:02→21:41)
[2018-03-28] MEDS ORDERED: Gadodiamide 287 mg/ml 20 ml IV ONE (09:42)
[2018-03-28] MEDS: Enoxaparin 40 mg Syringe SC SCH (10:09)
[2018-03-28] MEDS ORDERED: (Novolin R) Insulin Human Regular 100 units/ml vial SC ONE (12:08)
--- NOTE | 2018-03-28 12:22 | MRI ---
Date of service: 03/28/2018 PROCEDURE: MRI BRAIN WITH AND WITHOUT CONTRAST HISTORY: CVA COMPARISON: Comparison made with the CT scan of the brain 03/27/2018. Performed TECHNIQUE: Multiplanar, multisequence MR images of the brain were obtained with and without intravenous contrast enhancement. FINDINGS: HEMORRHAGE: None DWI: Seen to better advantage is an acute left posterior cerebral artery infarct which does not exhibit any significant contrast enhancement at this time. . In addition, there is a predominantly chronic appearing infarct in the right superior frontal lobe near the vertex extending to the level of the lateral ventricle which exhibits some central irregular - curvilinear cortical surface contrast enhancement that suggests subacute to late phase infarct with some result in some mild enhancement. Note also that the at there is what probably represents some shine through artifact along the posterior margin of this infarct mimicking acute change. Chronic encephalomalacia also seen in the right posterior temporoparietal watershed zone consistent with an old infarct as well. There are a few chronic appearing lacunar type infarcts scattered about the periventricular/deep white matter as well as left cerebellar hemisphere. BRAIN PARENCHYMA: No mass,mass effect or edema. No atrophy or chronic microvascular ischemic changes. ENHANCEMENT: No enhancing parenchymal nor extra-axial masses or collections not withstanding the aforementioned mild contrast enhancement within the central portion of a infarct right frontal lobe as described VENTRICLES: No obstructive hydrocephalus. CRANIUM: Unremarkable. ORBITS: Orbits and contents unremarkable PARANASAL SINUSES/MASTOIDS: Mild mucoperiosteal inflammatory changes inferior margins both maxillary antra. VASCULAR SYSTEM: The visualized major vascular flow voids at skull base patent. OTHER FINDINGS: None . IMPRESSION: Seen to better advantage is an acute left posterior cerebral artery infarct which does not exhibit any significant contrast enhancement at this time. . In addition, there is a predominantly chronic appearing infarct in the right superior frontal lobe near the vertex extending to the level of the lateral ventricle which exhibits some central irregular - curvilinear cortical surface contrast enhancement that suggests subacute to late phase infarct with some result in some mild enhancement. Note also that the at there is what probably represents some shine through artifact along the posterior margin of this infarct mimicking acute change. Chronic encephalomalacia also seen in the right posterior temporoparietal watershed zone consistent with an old infarct as well. There are a few chronic appearing lacunar type infarcts scattered about the periventricular/deep white matter as well as left cerebellar hemisphere. . No enhancing masses seen.
--- NOTE | 2018-03-28 12:36 | CP.PCM.CON ---
History of Present Illness - History of Present Illness History of Present Illness: 52 yr old male who is here for acute onset of visual loss that started yesterday at around 1 am. Neurology team was consulted this morning at 6 am. Of note, patient was seen by PMD Dr. Kessler yesterday due to elevated blood sugar of 600 and received a Basaglar injection in the office. Patient had previously been on oral medication, and yesterday was given prescription to continue injections. Today patient gave himself an injection in the morning as prescribed. He began feeling his vision darkening in both eyes for the past 3 days. States he feels well otherwise, no other symptoms. Denies associated headache, blurred vision, weakness,palpitations, SOB, chest pain, or dizziness. Time Seen by Provider: 03/27/18 14:52 Chief Complaint (Nursing): High Blood Sugar History Per: Patient History/Exam Limitations: no limitations Onset/Duration Of Symptoms: Hrs Current Symptoms Are (Timing): Still Present Current Diabetic Medications: Oral Medication, Other (Vasaguar) Past Medical History Reviewed: Historical Data, Nursing Documentation, Vital Signs Vital Signs: Last Vital Signs Temp 99.0 F 03/27/18 14:31 Pulse 92 H 03/27/18 14:31 Resp 18 03/27/18 14:31 BP 130/80 03/27/18 14:31 Pulse Ox 98 03/27/18 15:13 - Medical History PMH: Diabetes, HTN, Hypercholesterolemia Surgical History: No Surg Hx Family History: States: Unknown Family Hx - Social History Hx Tobacco Use: No Hx Alcohol Use: Yes Past Patient History - Past Social History Smoking Status: Never Smoked - CARDIAC Hx Hypercholesterolemia: Yes Hx Hypertension: Yes - ENDOCRINE/METABOLIC Hx Diabetes Mellitus Type 2: Yes - MUSCULOSKELETAL/RHEUMATOLOGICAL Hx Falls: No - PSYCHIATRIC Hx Substance Use: No - SURGICAL HISTORY Hx Surgeries: No - ANESTHESIA Hx Anesthesia: No Meds Allergies/Adverse Reactions: Allergies Allergy/AdvReac Type Severity Reaction Status Date / Time No Known Allergies Allergy Unverified 02/10/17 13:48 - Medications Medications: Current Medications Acetaminophen (Tylenol 325mg Tab) 650 mg PO Q6 PRN PRN Reason: Pain, Mild (1-3) Last Admin: 03/27/18 22:19 Dose: 650 mg Aspirin (Aspirin Chewable) 81 mg PO DAILY [facility] Last Admin: 03/28/18 10:09 Dose: 81 mg Enoxaparin Sodium (Lovenox) 40 mg SC DAILY [facility] Last Admin: 03/28/18 10:09 Dose: 40 mg Insulin Human Regular (Novolin R) 0 unit SC [facility] PRN Reason: Protocol Last Admin: 03/28/18 08:02 Dose: 2 units Lisinopril (Zestril) 5 mg PO DAILY [facility] Last Admin: 03/28/18 10:09 Dose: 5 mg Metformin HCl (Glucophage) 1,000 mg PO BID [facility] Last Admin: 03/28/18 10:09 Dose: 1,000 mg Pneumococcal Polyvalent Vaccine (Pneumovax 23 Vaccine) 0.5 ml IM .ONCE ONE Stop: 03/30/18 10:01 Rosuvastatin Calcium (Crestor) 40 mg PO [facility] Last Admin: 03/27/18 21:27 Dose: 40 mg Results - Vital Signs Recent Vital Signs: Last Vital Signs Temp 98.9 F 03/28/18 07:30 Pulse 100 H 03/28/18 10:13 Resp 18 03/28/18 07:30 BP 124/77 03/28/18 10:08 Pulse Ox 99 03/28/18 07:30 - Labs Result Diagrams: 03/29/18 06:38 03/29/18 06:38 Labs: Laboratory Results - last 24 hr 03/27/18 03/27/18 03/27/18 14:40 15:10 15:10 WBC 11.0 H D RBC 4.82 Hgb 15.5 Hct 43.0 MCV 89.4 MCH 32.1 H MCHC 35.9 RDW 12.6 Plt Count 229 MPV 9.4 Neut % (Auto) 69.3 Lymph % (Auto) 23.6 [place] % (Auto) 5.6 Eos % (Auto) 1.0 Baso % (Auto) 0.5 Neut # (Auto) 7.6 H Lymph # (Auto) 2.6 [place] # (Auto) 0.6 Eos # (Auto) 0.1 Baso # (Auto) 0.1 Sodium Potassium Chloride Carbon Dioxide Anion Gap BUN Creatinine Est GFR ( Amer) Est GFR (Non-Af Amer) POC Glucose (mg/dL) 367 H Random Glucose Hemoglobin A1c Calcium Magnesium Total Bilirubin AST ALT Alkaline Phosphatase Total Protein Albumin Globulin Albumin/Globulin Ratio Triglycerides Cholesterol LDL Cholesterol Direct HDL Cholesterol Urine Color Yellow Urine Clarity Clear Urine pH 5.0 Ur Specific [place] 1.025 Urine Protein Negative Urine Glucose (UA) 3+ H Urine Ketones Trace Urine Blood Negative Urine Nitrate Negative Urine Bilirubin Negative Urine Urobilinogen Normal Ur Leukocyte Esterase Neg Urine WBC (Auto) 1 Urine RBC (Auto) 1 Ur Squamous Epith Cells < 1 03/27/18 03/27/18 03/27/18 15:10 20:00 20:00 WBC RBC Hgb Hct MCV MCH MCHC RDW Plt Count MPV Neut % (Auto) Lymph % (Auto) [place] % (Auto) Eos % (Auto) Baso % (Auto) Neut # (Auto) Lymph # (Auto) [place] # (Auto) Eos # (Auto) Baso # (Auto) Sodium 133 Potassium 3.9 Chloride 95 L Carbon Dioxide 24 Anion Gap 18 BUN 25 H Creatinine 0.9 Est GFR ( Amer) > 60 Est GFR (Non-Af Amer) > 60 POC Glucose (mg/dL) Random Glucose 353 H Hemoglobin A1c 11.8 H Calcium 9.5 Magnesium 1.5 L Total Bilirubin 1.5 H AST 24 ALT 30 Alkaline Phosphatase 182 H Total Protein 7.6 Albumin 4.8 Globulin 2.8 Albumin/Globulin Ratio 1.7 Triglycerides 364 H D Cholesterol 183 LDL Cholesterol Direct 97 HDL Cholesterol 29 L Urine Color Urine Clarity Urine pH Ur Specific [place] Urine Protein Urine Glucose (UA) Urine Ketones Urine Blood Urine Nitrate Urine Bilirubin Urine Urobilinogen Ur Leukocyte Esterase Urine WBC (Auto) Urine RBC (Auto) Ur Squamous Epith Cells 03/27/18 03/28/18 03/28/18 21:57 05:57 11:02 WBC RBC Hgb Hct MCV MCH MCHC RDW Plt Count MPV Neut % (Auto) Lymph % (Auto) [place] % (Auto) Eos % (Auto) Baso % (Auto) Neut # (Auto) Lymph # (Auto) [place] # (Auto) Eos # (Auto) Baso # (Auto) Sodium Potassium Chloride Carbon Dioxide Anion Gap BUN Creatinine Est GFR ( Amer) Est GFR (Non-Af Amer) POC Glucose (mg/dL) 169 H 226 H 454 H* Random Glucose Hemoglobin A1c Calcium Magnesium Total Bilirubin AST ALT Alkaline Phosphatase Total Protein Albumin Globulin Albumin/Globulin Ratio Triglycerides Cholesterol LDL Cholesterol Direct HDL Cholesterol Urine Color Urine Clarity Urine pH Ur Specific [place] Urine Protein Urine Glucose (UA) Urine Ketones Urine Blood Urine Nitrate Urine Bilirubin Urine Urobilinogen Ur Leukocyte Esterase Urine WBC (Auto) Urine RBC (Auto) Ur Squamous Epith Cells - Imaging and Cardiology MRI - head Status: Image reviewed by me, Report reviewed by me (MRI Brain shows acute left occipital stroke, and suspicious for right sided avm, versus a heterogeneously enhancing lesion. ) Assessment & Plan - Assessment and Plan (Free Text) Assessment: 52 yr old male who has new ischemic stroke in the occipital region, left mca division 3, who has blurriness of vision as a result. Stroke workup needed. Plan: 1. ECHo 2. protein c protein s, fibrinogen, anthithrombin 3, factor 5 leiden mutation, homocysteine 3. Physical therapy 4. DVT prophylaxis with lovenox 5. Aspirin and plavix. Sridhar wallace
--- NOTE | 2018-03-28 14:29 | VASCLAB ---
Date of service: 03/28/2018 PROCEDURE: HISTORY: CVA. Visual Disturbances COMPARISON: None available. TECHNIQUE: Grayscale and duplex Doppler evaluation of the cervical carotid and vertebral arteries were performed. The common carotid, carotid bifurcations and cervical Internal Carotid Artery (ICA) and proximal External Carotid Artery (ECA) were evaluated. The vertebral arteries were evaluated for gross patency and flow direction. Report prepared by NAVDEEP Young FINDINGS: RIGHT CAROTID ARTERIES: 1. Common Carotid Artery: No significant focal plaque formation of the right common carotid artery. Maximum Peak Systolic velocity: 93 cm/sec: End-diastolic velocity 19 cm/sec. 2. Carotid Bifurcation: plaque formation. Maximum Peak Systolic velocity: 46 cm/sec: End-diastolic velocity 13 cm/sec. 3. Internal Carotid Artery: Plaque description: Calcific 3.1. Proximal Segment: Peak systolic velocity 64 cm/sec: End-diastolic velocity 26 cm/sec - % stenosis 0-15% 3.2. Middle Segment: Peak systolic velocity 91 cm/sec: End-diastolic velocity 34 cm/sec - % stenosis 0-15% 3.3. Distal Segment: Peak systolic velocity 67 cm/sec: End-diastolic velocity 27 cm/sec - % stenosis 0-15% 4. External Carotid Artery: No significant focal plaque formation. Peak systolic velocity 78 cm/sec 5. ICA/CCA Ratio: 1.9 LEFT CAROTID ARTERIES: 1. Common Carotid Artery: No significant focal plaque formation of the left common carotid artery. Maximum Peak Systolic velocity: 85 cm/sec: End-diastolic velocity 23 cm/sec. 2. Carotid Bifurcation: plaque formation. Maximum Peak Systolic velocity: 44 cm/sec: End-diastolic velocity 7 cm/sec. 3. Internal Carotid Artery: Plaque description: Calcific 3.1. Proximal Segment: Peak systolic velocity 66 cm/sec: End-diastolic velocity 27 cm/sec - % stenosis 0-15% 3.2. Middle Segment: Peak systolic velocity 75 cm/sec: End-diastolic velocity 31 cm/sec - % stenosis 0-15% 3.3. Distal Segment: Peak systolic velocity 36 cm/sec: End-diastolic velocity 16 cm/sec - % stenosis 0-15% 4. External Carotid Artery: No significant focal plaque formation. Peak systolic velocity 88 cm/sec 5. ICA/CCA Ratio: 1.1 VERTEBRAL ARTERIES: 1. Right Vertebral Artery: The right vertebral artery flow direction is antegrade. 2. Left Vertebral Artery: The left vertebral artery flow direction is antegrade. OTHER FINDINGS: 1. Right Brachial Blood pressure: 130 mmHg. 2. Left Brachial Blood pressure: 125 mmHg. IMPRESSION: RIGHT: Duplex scan does not suggest hemodynamically significant stenosis of the right extracranial carotid arteries. LEFT: Duplex scan does not suggest hemodynamically significant stenosis of the left extracranial carotid arteries.
[2018-03-28 16:07] LABS: HDL CHOLESTEROL 34 mg/dL (30-70)
[2018-03-28 16:18] LABS: LDL CHOLESTEROL 103 mg/dL (0-129)
[2018-03-28] MEDS ORDERED: Iodixanol 320 MG/ML 100 ML BOTTLE IV ONE (16:33)
[2018-03-28 18:30] LABS: BASO # 0.1 K/uL (0.0-0.2); BASO % 0.6 % (0.0-2.0); EOS # 0.1 K/uL (0.0-0.7); EOS % 1.2 % (0.0-4.0); HEMOGLOBIN 15.6 g/dL (12.0-18.0); LYMPH # 3.1 K/uL (1.0-4.3); MEAN CELL VOLUME 88.9 fL (80.0-94.0); MEAN CORPUSCULAR HEMOGLOBIN 31.7 pg (27.0-31.0); MEAN CORPUSCULAR HGB CONC 35.6 g/dL (33.0-37.0); MEAN PLATELET VOLUME 9.4 fL (7.2-11.7); MONO # 0.8 K/uL (0.0-0.8); MONO % 8.1 % (0.0-10.0); NEUT # 5.4 K/uL (1.8-7.0); NEUT % 57.1 % (50.0-75.0); NRBC % 0.1 % (0.0-2.0); RBC 4.91 Mil/uL (4.40-5.90); RED CELL DISTRIBUTION WIDTH 12.4 % (11.5-14.5); WHITE BLOOD COUNT 9.4 K/uL (4.8-10.8)
[2018-03-28 18:50] LABS: ALB/GLOB RATIO 1.5 (1.0-2.1); ALT/SGPT 31 U/L (21-72); AST/SGOT 22 U/L (17-59); BLOOD UREA NITROGEN 16 mg/dL (9-20); CALCIUM 9.3 mg/dl (8.6-10.4); GFR AFRICAN-AMERICAN > 60; GFR NON-AFRICAN AMERICAN > 60
[2018-03-28] MEDS: (Lantus) Insulin Glargine, Recombinant SC SCH (21:15)
--- NOTE | 2018-03-29 06:40 | CP.PCM.HP ---
<Margaret Cortez E - Last Filed: 03/29/18 07:37> History of Present Illness - History of Present Illness History of Present Illness: CC: Darkening vision HPI limited due to forgetfulness or slow to remember HPI: Patient is a 52 year old female with past medical history of HTN, DM2, hyperlipidemia, who presents to the ED with complaint of darkening vision. As per patient, patient was seen at his PMD, Dr. Kessler's office the day before he came to the ED. During the office encounter, patient was noted to have elevated glucose level and received Basaglar injection and left the office with prescription for insulin. Patient states that he did well post-office visit. However, patient started to experience darkening/blurry vision the next day when he got to his work, which he states he has been experiencing for a while now. Patient noted associated symptoms of headache but denies chest pain, SOB, palpitation, weakness, SOB and dizziness. PMD: Dr. 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 Pt denies tobacco and illicit drugs use and admits to occasional ETOH Present on Admission - Present on Admission Any Indicators Present on Admission: No Review of Systems - Constitutional Constitutional: Headache. absent: Chills, Fever, Frequent Falls - EENT Eyes: Blurred Vision, Change in Vision. absent: Blind Spots Ears: absent: Decreased Hearing, Dizziness - Cardiovascular Cardiovascular: absent: Chest Pain, Diaphoresis, Dyspnea, Lightheadedness, Palpitations - Respiratory Respiratory: absent: Dyspnea - Gastrointestinal Gastrointestinal: absent: Abdominal Pain, Nausea, Vomiting - Musculoskeletal Musculoskeletal: absent: Limited Range of Motion, Neck Pain, Numbness, Tingling - Neurological Neurological: Other Visual Disturbances. absent: Dizziness, Lack of Coordination, Tingling Past Patient History - Past Social History Smoking Status: Never Smoked - CARDIAC Hx Hypercholesterolemia: Yes Hx Hypertension: Yes - ENDOCRINE/METABOLIC Hx Diabetes Mellitus Type 2: Yes - MUSCULOSKELETAL/RHEUMATOLOGICAL Hx Falls: No - PSYCHIATRIC Hx Substance Use: No - SURGICAL HISTORY Hx Surgeries: No - ANESTHESIA Hx Anesthesia: No Meds Home Medications: Home Medication List Medication Instructions Recorded Confirmed Type Aspirin [Aspirin Chewable] 81 mg PO DAILY #30 chew 03/30/18 Rx Clopidogrel [Plavix] 75 mg PO DAILY #30 tab 03/30/18 Rx Glimepiride [amaRYL] 4 mg PO DAILY #30 tab 03/30/18 Rx Lisinopril [Zestril] 5 mg PO DAILY #30 tab 03/30/18 Rx MetFORMIN [glucoPHAGE] 1,000 mg PO BID #60 tab 03/30/18 Rx Rosuvastatin Calcium [Crestor] 40 mg PO HS #30 tab 03/30/18 Rx SITagliptin [Januvia] 100 mg PO DAILY #30 tab 03/30/18 Rx Allergies/Adverse Reactions: Allergies Allergy/AdvReac Type Severity Reaction Status Date / Time No Known Allergies Allergy Unverified 02/10/17 13:48 Physical Exam - Constitutional Appears: No Acute Distress - Head Exam Head Exam: ATRAUMATIC, NORMAL INSPECTION - Eye Exam Eye Exam: EOMI Additional comments: Pt will need adequate opthslmology evaluation - ENT Exam ENT Exam: Mucous Membranes Moist - Respiratory Exam Respiratory Exam: Clear to Auscultation Bilateral, NORMAL BREATHING PATTERN. absent: Prolonged Expiratory Phase, Rhonchi, Wheezes, Respiratory Distress - Cardiovascular Exam Cardiovascular Exam: REGULAR RHYTHM, +S1, +S2 - GI/Abdominal Exam GI & Abdominal Exam: Normal Bowel Sounds, Soft. absent: Diminished Bowel Sounds , Distended, Hyperactive Bowel Sounds, Hypoactive Bowel Sounds, Tenderness - Extremities Exam Extremities exam: Positive for: calf tenderness, full ROM, normal inspection - Back Exam Back exam: NORMAL INSPECTION - Neurological Exam Neurological exam: Alert, CN II-XII Intact, Normal Gait, Oriented x3, Reflexes Normal Additional comments: Patient was able to walk from his bed to the hallway without assistance Patient was able to read the patient board while sitting on his bed ( used his glasses) Patient had delayed response to questions or intermittent confusion during questioning - Psychiatric Exam Psychiatric exam: Normal Affect - Skin Skin Exam: Normal Color Results - Vital Signs Recent Vital Signs: Last Vital Signs Temp 98.6 F 03/28/18 23:05 Pulse 82 03/28/18 23:05 Resp 20 03/28/18 23:05 BP 133/76 03/28/18 23:05 Pulse Ox 97 03/28/18 23:05 - Labs Result Diagrams: 03/28/18 18:27 07/12/18 18:27 Labs: Laboratory Results - last 24 hr 03/28/18 03/28/18 03/28/18 05:57 11:02 15:51 WBC RBC Hgb Hct MCV MCH MCHC RDW Plt Count MPV Neut % (Auto) Lymph % (Auto) Russell % (Auto) Eos % (Auto) Baso % (Auto) Neut # (Auto) Lymph # (Auto) Russell # (Auto) Eos # (Auto) Baso # (Auto) Sodium Potassium Chloride Carbon Dioxide Anion Gap BUN Creatinine Est GFR ( Amer) Est GFR (Non-Af Amer) POC Glucose (mg/dL) 226 H 454 H* Random Glucose Calcium Total Bilirubin AST ALT Alkaline Phosphatase Total Protein Albumin Globulin Albumin/Globulin Ratio Triglycerides 414 H Cholesterol 192 LDL Cholesterol Direct 103 HDL Cholesterol 34 03/28/18 03/28/18 03/28/18 16:23 18:27 18:27 WBC 9.4 RBC 4.91 Hgb 15.6 Hct 43.7 MCV 88.9 MCH 31.7 H MCHC 35.6 RDW 12.4 Plt Count 209 MPV 9.4 Neut % (Auto) 57.1 Lymph % (Auto) 33.0 Russell % (Auto) 8.1 Eos % (Auto) 1.2 Baso % (Auto) 0.6 Neut # (Auto) 5.4 Lymph # (Auto) 3.1 Russell # (Auto) 0.8 Eos # (Auto) 0.1 Baso # (Auto) 0.1 Sodium 137 Potassium 3.8 Chloride 100 Carbon Dioxide 26 Anion Gap 15 BUN 16 Creatinine 0.6 L Est GFR ( Amer) > 60 Est GFR (Non-Af Amer) > 60 POC Glucose (mg/dL) 238 H Random Glucose 170 H Calcium 9.3 Total Bilirubin 1.1 AST 22 ALT 31 Alkaline Phosphatase 122 Total Protein 6.7 Albumin 4.0 Globulin 2.7 Albumin/Globulin Ratio 1.5 Triglycerides Cholesterol LDL Cholesterol Direct HDL Cholesterol 03/28/18 21:29 WBC RBC Hgb Hct MCV MCH MCHC RDW Plt Count MPV Neut % (Auto) Lymph % (Auto) Russell % (Auto) Eos % (Auto) Baso % (Auto) Neut # (Auto) Lymph # (Auto) Russell # (Auto) Eos # (Auto) Baso # (Auto) Sodium Potassium Chloride Carbon Dioxide Anion Gap BUN Creatinine Est GFR ( Amer) Est GFR (Non-Af Amer) POC Glucose (mg/dL) 267 H Random Glucose Calcium Total Bilirubin AST ALT Alkaline Phosphatase Total Protein Albumin Globulin Albumin/Globulin Ratio Triglycerides Cholesterol LDL Cholesterol Direct HDL Cholesterol Assessment & Plan (1) Visual disturbance as complication of stroke Assessment and Plan: Needs Opthalmology evaluation Neurology, Dr. Ching on board----> Help appreciated * Management as per recommendation Imaging: CT Head (03/27/18): Left occipital late acute/ early subacute infarction. Tiny foci of high attenuation the which petechial hemorrhage cannot be excluded. Old right frontal lobe infarct which is new since the prior study. Areas of high attenuation within this for which hemorrhage cannot be excluded.Old infarcts in the right occipital and right posterior parietal lobes. Brain MRI w/o contrast (03/28/18): Seen to better advantage is an acute left posterior cerebral artery infarct which does not exhibit any significant contrast enhancement at this time. . In addition, there is a predominantly chronic appearing infarct in the right superior frontal lobe near the vertex extending to the level of the lateral ventricle which exhibits some central irregular - curvilinear cortical surface contrast enhancement that suggests subacute to late phase infarct with some result in some mild enhancement. Note also that the at there is what probably represents some shine through artifact along the posterior margin of this infarct mimicking acute change. Chronic encephalomalacia also seen in the right posterior temporoparietal watershed zone consistent with an old infarct as well. There are a few chronic appearing lacunar type infarcts scattered about the periventricular/deep white matter as well as left cerebellar hemisphere. No enhancing masses seen Carotid doppler study (03/27/18): Right and left duplex scan do not suggest hemodynamically significant stenosis of extracranial carotid arteries Awaiting official report of MRA head/neck: CT head (02/10/17): no acute intracranial abnl; no significant findings to account for clinical presentation; old infarcts R occipital lobe, R parietal lobe. Repeat head CT (02/14/17): showed acute R parietal infarct with minimal high attenuation consistent with hemorrhage as demonstrated on MR examination of previous day. Old right occipital infarct. Old left cereballar hemispheric infarct. MRI brain w/o contrast (02/13/17): showed acute hemorrhagic infarction in R posterior parietal lobe involving MCA territory; Cystic encephalomalacia and gliosis in the R occipital lobe, a sequela of remote right SOIL TECHNICIAN territory infarction; old infarctions in the R paramedian and cortical frontal lobe and L cerebellar hemisphere. MRA head/neck (02/13/17) were unremarkable Status: Acute (2) CVA (cerebral vascular accident) Assessment and Plan: Neurology, Dr. Ching on board----> Help appreciated * Management as per recommendation Imaging: CT Head (03/27/18): Left occipital late acute/ early subacute infarction. Tiny foci of high attenuation the which petechial hemorrhage cannot be excluded. Old right frontal lobe infarct which is new since the prior study. Areas of high attenuation within this for which hemorrhage cannot be excluded.Old infarcts in the right occipital and right posterior parietal lobes. Brain MRI w/o contrast (03/28/18): Seen to better advantage is an acute left posterior cerebral artery infarct which does not exhibit any significant contrast enhancement at this time. . In addition, there is a predominantly chronic appearing infarct in the right superior frontal lobe near the vertex extending to the level of the lateral ventricle which exhibits some central irregular - curvilinear cortical surface contrast enhancement that suggests subacute to late phase infarct with some result in some mild enhancement. Note also that the at there is what probably represents some shine through artifact along the posterior margin of this infarct mimicking acute change. Chronic encephalomalacia also seen in the right posterior temporoparietal watershed zone consistent with an old infarct as well. There are a few chronic appearing lacunar type infarcts scattered about the periventricular/deep white matter as well as left cerebellar hemisphere. No enhancing masses seen Carotid doppler study (03/27/18): Right and left duplex scan do not suggest hemodynamically significant stenosis of extracranial carotid arteries Awaiting official report of MRA head/neck: Echo (02/14/17): No evidence of cardioembolic source to this cryptogenic CVA, Left ventricle is normal size. Please refer to the EMR for complete impression F/u repeat echo Labs: HgbA1C: 11.8 Lipid Panel: TGL: 371, Chol:151, LDL: 71 and HDL: 26 Medications: * ASA 81mg PO QD * Crestor 40mg PO HS Status: Acute (3) Diabetes Assessment and Plan: Labs: HgbA1C: 11.8 Medication/Management: * Accuchecks * Glimepiride 4mg PO QD * Januvia 100mg PO QD * Lantus 10 unit SC HS * ISS: Low dose * Lisinopril 5mg PO QD * Metformin 1,000mg PO BID Status: Chronic (4) HTN (hypertension) Assessment and Plan: Controlled Lisinopril 5mg PO QD Status: Chronic (5) Prophylactic measure Assessment and Plan: DVT: Lovenox 40mg SC daily Heart healthy diet PT/OT Status: Acute <Jesus Francisco P - Last Filed: 03/30/18 20:03> Results - Vital Signs Recent Vital Signs: Last Vital Signs Temp 98.1 F 03/30/18 07:05 Pulse 83 03/30/18 09:12 Resp 18 03/30/18 07:05 BP 111/71 03/30/18 09:12 Pulse Ox 97 03/30/18 07:05 - Labs Result Diagrams: 03/30/18 06:14 03/30/18 06:14 Labs: Laboratory Results - last 24 hr 03/29/18 03/30/18 03/30/18 22:01 05:54 06:14 WBC 8.4 RBC 4.93 Hgb 15.6 Hct 43.7 MCV 88.5 MCH 31.6 H MCHC 35.7 RDW 12.5 Plt Count 224 MPV 9.2 Neut % (Auto) 53.9 Lymph % (Auto) 36.6 Russell % (Auto) 5.6 Eos % (Auto) 3.0 Baso % (Auto) 0.9 Neut # (Auto) 4.5 Lymph # (Auto) 3.1 Russell # (Auto) 0.5 Eos # (Auto) 0.3 Baso # (Auto) 0.1 Sodium Potassium Chloride Carbon Dioxide Anion Gap BUN Creatinine Est GFR ( Amer) Est GFR (Non-Af Amer) POC Glucose (mg/dL) 197 H 172 H Random Glucose Calcium Phosphorus Magnesium Total Bilirubin AST ALT Alkaline Phosphatase Total Protein Albumin Globulin Albumin/Globulin Ratio 03/30/18 06:14 WBC RBC Hgb Hct MCV MCH MCHC RDW Plt Count MPV Neut % (Auto) Lymph % (Auto) Russell % (Auto) Eos % (Auto) Baso % (Auto) Neut # (Auto) Lymph # (Auto) Russell # (Auto) Eos # (Auto) Baso # (Auto) Sodium 139 Potassium 4.1 Chloride 103 Carbon Dioxide 24 Anion Gap 16 BUN 18 Creatinine 0.7 L Est GFR ( Amer) > 60 Est GFR (Non-Af Amer) > 60 POC Glucose (mg/dL) Random Glucose 171 H Calcium 9.1 Phosphorus 4.5 Magnesium 1.4 L Total Bilirubin 1.0 AST 38 ALT 30 Alkaline Phosphatase 146 H Total Protein 6.6 Albumin 3.9 Globulin 2.7 Albumin/Globulin Ratio 1.4 Attending/Attestation - Attestation I have personally seen and examined this patient.: Yes I have fully participated in the care of the patient.: Yes I have reviewed all pertinent clinical information: Yes Notes (Text): 03/30/18 20:00 New and recurrent cerebral infarcts this time, left occipital lobe, affecting vision symptoms started few days prior to admission, patient transferred from Dr. Kessler's service, will w/u for hypercoagulable w/u, echo. DM on OHA and insulin Plan see orders for detail.
[2018-03-29 07:27] LABS: ALB/GLOB RATIO 1.5 (1.0-2.1); ALBUMIN 3.9 g/dL (3.5-5.0); ALT/SGPT 27 U/L (21-72); AST/SGOT 30 U/L (17-59); BLOOD UREA NITROGEN 18 mg/dL (9-20); CALCIUM 8.7 mg/dl (8.6-10.4); GFR AFRICAN-AMERICAN > 60; GFR NON-AFRICAN AMERICAN > 60; HDL CHOLESTEROL 26 mg/dL (30-70); LDL CHOLESTEROL 71 mg/dL (0-129)
--- NOTE | 2018-03-29 07:33 | CP.PCM.PN ---
Subjective - Date & Time of Evaluation Date of Evaluation: 03/28/18 Time of Evaluation: 16:00 - Subjective Subjective: Pt is seen and examined, Objective - Vital Signs/Intake and Output Vital Signs (last 24 hours): Temp Pulse Resp BP Pulse Ox 98.6 F 82 20 133/76 97 03/28/18 23:05 03/28/18 23:05 03/28/18 23:05 03/28/18 23:05 03/28/18 23:05 Intake and Output: 03/29/18 03/29/18 06:59 18:59 Intake Total 300 Output Total 2 Balance 298 - Medications Medications: Current Medications Acetaminophen (Tylenol 325mg Tab) 650 mg PO Q6 PRN PRN Reason: Pain, Mild (1-3) Last Admin: 03/27/18 22:19 Dose: 650 mg Aspirin (Aspirin Chewable) 81 mg PO DAILY [facility] Last Admin: 03/28/18 10:09 Dose: 81 mg Enoxaparin Sodium (Lovenox) 40 mg SC DAILY [facility] Last Admin: 03/28/18 10:09 Dose: 40 mg Glimepiride (Amaryl) 4 mg PO DAILY [facility] Insulin Glargine (Lantus) 10 unit SC [facility] Last Admin: 03/28/18 21:15 Dose: 10 units Insulin Human Regular (Novolin R) 0 unit SC [facility] PRN Reason: Protocol Last Admin: 03/28/18 21:41 Dose: Not Given Lisinopril (Zestril) 5 mg PO DAILY [facility] Last Admin: 03/28/18 10:09 Dose: 5 mg Metformin HCl (Glucophage) 1,000 mg PO BID [facility] Last Admin: 03/28/18 17:20 Dose: 1,000 mg Pneumococcal Polyvalent Vaccine (Pneumovax 23 Vaccine) 0.5 ml IM .ONCE ONE Stop: 03/30/18 10:01 Rosuvastatin Calcium (Crestor) 40 mg PO [facility] Last Admin: 03/28/18 21:15 Dose: 40 mg Sitagliptin Phosphate (Januvia) 100 mg PO DAILY [facility] - Labs Labs: 03/28/18 18:27 03/29/18 06:38
[2018-03-29] MEDS: (Novolin R) Insulin Human Regular 100 units/ml vial SC SCH ×4 (07:58→22:15)
[2018-03-29] MEDS: (Lantus) Insulin Glargine, Recombinant SC SCH ×3 (07:59→17:01)
[2018-03-29 08:06] LABS: BASO # 0.1 K/uL (0.0-0.2); BASO % 0.7 % (0.0-2.0); EOS # 0.2 K/uL (0.0-0.7); EOS % 2.3 % (0.0-4.0); HEMOGLOBIN 14.9 g/dL (12.0-18.0); LYMPH # 3.3 K/uL (1.0-4.3); LYMPH % 37.5 % (20.0-40.0); MEAN CORPUSCULAR HEMOGLOBIN 31.6 pg (27.0-31.0); MEAN CORPUSCULAR HGB CONC 35.5 g/dL (33.0-37.0); MEAN PLATELET VOLUME 9.7 fL (7.2-11.7); MONO # 0.6 K/uL (0.0-0.8); NEUT # 4.7 K/uL (1.8-7.0); NEUT % 52.5 % (50.0-75.0); NRBC % 0.1 % (0.0-2.0); RBC 4.71 Mil/uL (4.40-5.90); RED CELL DISTRIBUTION WIDTH 12.5 % (11.5-14.5); WHITE BLOOD COUNT 8.9 K/uL (4.8-10.8)
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
--- NOTE | 2018-03-29 09:14 | CT ---
PROCEDURE: CTA HEAD AND NECK WITH CONTRAST HISTORY: stroke COMPARISON: None available. TECHNIQUE: Initial noncontrast head CT was performed. Subsequently, CT angiogram of the head and neck were performed after the intravenous administration of 80 mL of Omnipaque 350. Contiguous 1.5mm thick images were obtained in the axial plane of the neck. 2-D coronal and sagittal MPR images were obtained. Imaging postprocessing was performed with 3-D images also obtained. A delayed contrast head CT was also obtained. This CT exam was performed using one or more of the following dose reduction techniques: Automated exposure control, adjustment of the mA and/or kV according to patient size, and/or use of iterative reconstruction technique. Contrast dose: 100 mL Visipaque Radiation dose: Total exam DLP = 714.79 mGy-cm. FINDINGS: HEAD: Right: The intracranial internal carotid artery and anterior cerebral arteries are widely patent. The right M1 segment is widely patent. There is asymmetric attenuation of tertiary branches in the sylvian fissure. There is no hemodynamically significant stenosis in the internal carotid artery. Left: The intracranial internal carotid artery, and anterior and middle cerebral arteries are widely patent. There is no hemodynamically significant stenosis in the internal carotid artery. Posterior circulation: The visualized intracranial vertebral arteries, basilar artery and posterior cerebral arteries are widely patent. There is no endoluminal filling defect to suggest thrombus. There is no intracranial saccular aneurysm. NECK: There is a three vessel aortic arch. There is no stenosis at the origins of the great vessels at the level of the aortic arch. There are coarse calcified atherosclerotic plaques in bilateral carotid bulbs and right proximal internal carotid artery Right Carotid: On the right, the common carotid, internal carotid and external carotid arteries are widely patent. There is no hemodynamically significant stenosis in the internal carotid artery by NASCET criteria. Left Carotid: On the left, the common carotid, internal carotid and external carotid arteries are widely patent.There is no hemodynamically significant stenosis in the internal carotid artery by NASCET criteria. The vertebral arteries are widely patent. The right vertebral artery is hypoplastic, an anatomic variant. The visualized soft tissues of the neck are normal. The lung apices are clear. IMPRESSION: 1. No evidence of endoluminal thrombus or occlusion. Chronic asymmetric narrowing of the tertiary MCA branches in the right sylvian fissure 2. No evidence of hemodynamically significant stenosis in the internal carotid arteries. 3. Patent bilateral vertebral arteries. The right vertebral artery is hypoplastic, an anatomic variant. A preliminary report was provided by [employer] services.
[2018-03-29] MEDS: Enoxaparin 40 mg Syringe SC SCH (09:15)
[2018-03-30 01:17] VITALS: O2SAT 97
[2018-03-30 06:20] LABS: BASO # 0.1 K/uL (0.0-0.2); BASO % 0.9 % (0.0-2.0); EOS # 0.3 K/uL (0.0-0.7); HEMOGLOBIN 15.6 g/dL (12.0-18.0); LYMPH # 3.1 K/uL (1.0-4.3); LYMPH % 36.6 % (20.0-40.0); MEAN CELL VOLUME 88.5 fL (80.0-94.0); MEAN CORPUSCULAR HEMOGLOBIN 31.6 pg (27.0-31.0); MEAN CORPUSCULAR HGB CONC 35.7 g/dL (33.0-37.0); MEAN PLATELET VOLUME 9.2 fL (7.2-11.7); MONO # 0.5 K/uL (0.0-0.8); MONO % 5.6 % (0.0-10.0); NEUT # 4.5 K/uL (1.8-7.0); NEUT % 53.9 % (50.0-75.0); NRBC % 0.1 % (0.0-2.0); RBC 4.93 Mil/uL (4.40-5.90); RED CELL DISTRIBUTION WIDTH 12.5 % (11.5-14.5); WHITE BLOOD COUNT 8.4 K/uL (4.8-10.8)
[2018-03-30 06:43] LABS: ALB/GLOB RATIO 1.4 (1.0-2.1); ALBUMIN 3.9 g/dL (3.5-5.0); ALT/SGPT 30 U/L (21-72); AST/SGOT 38 U/L (17-59); BLOOD UREA NITROGEN 18 mg/dL (9-20); CALCIUM 9.1 mg/dl (8.6-10.4); GFR AFRICAN-AMERICAN > 60; GFR NON-AFRICAN AMERICAN > 60
[2018-03-30] MEDS: (Novolin R) Insulin Human Regular 100 units/ml vial SC SCH (07:41)
[2018-03-30] MEDS ORDERED: Magnesium Sulfate 1 gm in D5W 1 GM/100 ML BAG IVPB ONE ×2 (07:56→09:17)
[2018-03-30 08:49] VITALS: RESP 18; TEMP 98.1
[2018-03-30 09:12] VITALS: BP 111/71; PULSE 83
[2018-03-30] MEDS: Enoxaparin 40 mg Syringe SC SCH (09:13)
[2018-03-30] MEDS ORDERED: Pneumococcal 23-Valent Vaccine IM ONE (10:00)
--- NOTE | 2018-03-30 10:13 | CP.PCM.PN ---
Subjective - Date & Time of Evaluation Date of Evaluation: 03/30/18 Time of Evaluation: 09:55 - Subjective Subjective: Patient was seen and examined at 9:55 AM Hospitalist Progress Note Currently upon FULL ROS: NO chest pain NO SOB/Cough NO abdominal pain NO n/v/d/c: normal bowel movement this morning NO burning pain with urination NO dysphagia/odynophagia NO lightheadedenss/dizziness NO paresthesias NO new changes in visioin NO new changes in hearing NO headache Exam: General: AAOX3, NAD HEENT: NCA, EOMI, PERRLA, Patient has Right Temporal Hemianopia, NO cervical/ supraclavicular/submandibular lymphadenopathy, NO pharyngeal erythema/exudate, Nasal Turbinates are nonerythematous/nonedematous, Oral Mucosa is moist Cardio: NS1 and NS2, NO M/R/G Resp: CTA B/L, NO R/R/W Right chest permacath GI: BSx4, Soft, NT, NO HSM, NO guarding/rebound tenderness Ext: Pulses are strong and equal in bilateral UE and LE, NO edema noted, capillary refills is 2 seconds on all toes Neuro: CN II through XII are grossly intact, 5/5 strength with flexion and extension bilateral UE and LE against resistence, 2/4 DTR bilateral UE and LE, Rhomberg is normal Assessments: 1). Left Occipital CVA 2). Prior Hx of CVA January 2017 3). HTN 4). DM [address] Mathews and patient ok from Neurology standpoint for discharge. Patient is stable from Medcine standpoint for discharge. The following instructions were explained to patient and a copy should be provided to him in [place]ovan for discharge: 1). Schedule appointment in the next 7 days with the [facility] located on Floor [address] of [facility] by calling . This clinic will be your primary care location that will help you coordinate your health care, provide you with future prescriptions so that you may have them filled at your pharmacy and provide you will referrals to see the following specialists: Neurologist for your history of Stroke Opthalmologist for your difficulty with your eye sight Insurance Processor to schedule Colonoscopy 3). Please have the following prescriptions filled at your pharmacy on your way from the hospital. These prescriptions are for 30 days only and future prescriptions must be obtained from the [facility]. You stated that you had the money to pay for them. Please use them as directed: Aspirin 81 mg, 1 tablet by mouth at 8 AM Plavix 75 mg, 1 tablet by mouth at 8 AM Glimepiride 4 mg, 1 tablet by mouth at 8 AM Metformin 1,000 mg, 1 tablet by mouth at 8 AM and 8 PM (breakfast and dinner) Januvia 100 mg, 1 tablet by mouth at 1 PM (lunch) Zestril 5 mg, 1 tablet by mouth at 8 AM Crestor 40 mg, 1 tablet by mouth at 8 PM 4). Please take care and be well. Tomasz Buck D.O. Objective - Vital Signs/Intake and Output Vital Signs (last 24 hours): Temp Pulse Resp BP Pulse Ox 98.1 F 83 18 111/71 97 03/30/18 07:05 03/30/18 09:12 03/30/18 07:05 03/30/18 09:12 03/30/18 07:05 - Medications Medications: Current Medications Acetaminophen (Tylenol 325mg Tab) 650 mg PO Q6 PRN PRN Reason: Pain, Mild (1-3) Last Admin: 03/29/18 21:38 Dose: 650 mg Aspirin (Aspirin Chewable) 81 mg PO DAILY [facility] Last Admin: 03/30/18 09:12 Dose: 81 mg Clopidogrel Bisulfate (Plavix) 75 mg PO DAILY [facility] Last Admin: 03/30/18 09:12 Dose: 75 mg Enoxaparin Sodium (Lovenox) 40 mg SC DAILY [facility] Last Admin: 03/30/18 09:13 Dose: 40 mg Glimepiride (Amaryl) 4 mg PO DAILY [facility] Last Admin: 03/30/18 09:12 Dose: 4 mg Insulin Human Regular (Novolin R) [address] [facility] PRN Reason: Protocol Last Admin: 03/30/18 07:41 Dose: 1 units Lisinopril (Zestril) 5 mg PO DAILY [facility] Last Admin: 03/30/18 09:13 Dose: 5 mg Metformin HCl (Glucophage) 1,000 mg PO BID [facility] Last Admin: 03/30/18 09:12 Dose: 1,000 mg Rosuvastatin Calcium (Crestor) 40 mg PO HS [facility] Last Admin: 03/29/18 21:36 Dose: 40 mg Sitagliptin Phosphate (Januvia) 100 mg PO DAILY [facility] Last Admin: 03/30/18 09:12 Dose: 100 mg - Labs Labs: 03/30/18 06:14 03/30/18 06:14
--- NOTE | 2018-03-30 10:15 | CP.PCM.DIS ---
<DimitriManuel M - Last Filed: 03/30/18 15:26> Provider - Provider Date of Admission: 03/27/18 16:30 Attending physician: Tomasz Buck MD Primary care physician: Dr. Kessler Consults: Dr. Ching Time Spent in preparation of Discharge (in minutes): 40 Diagnosis - Discharge Diagnosis (1) Visual disturbance as complication of stroke Status: Acute Comment: Likely a acute change from CVA, follow up outpatient. (2) CVA (cerebral vascular accident) Status: Acute Comment: Patient had a CVA in occipital lobe, left MCA, w/ now blurry vision. Started aspirin & statin. (3) HTN (hypertension) Status: Chronic Comment: Controlled w/ Lisinopril (4) Diabetes Status: Chronic Comment: Controlled with metformin, glimepiride & januivia. Hospital Course - Lab Results Lab Results: Most Recent Lab Values WBC 8.4 K/uL (4.8-10.8) 03/30/18 06:14 RBC 4.93 Mil/uL (4.40-5.90) 03/30/18 06:14 Hgb 15.6 g/dL (12.0-18.0) 03/30/18 06:14 Hct 43.7 % (35.0-51.0) 03/30/18 06:14 MCV 88.5 fL (80.0-94.0) 03/30/18 06:14 MCH 31.6 pg (27.0-31.0) H 03/30/18 06:14 MCHC 35.7 g/dL (33.0-37.0) 03/30/18 06:14 RDW 12.5 % (11.5-14.5) 03/30/18 06:14 Plt Count 224 K/uL (130-400) 03/30/18 06:14 MPV 9.2 fL (7.2-11.7) 03/30/18 06:14 Neut % (Auto) 53.9 % (50.0-75.0) 03/30/18 06:14 Lymph % (Auto) 36.6 % (20.0-40.0) 03/30/18 06:14 [place] % (Auto) 5.6 % (0.0-10.0) 03/30/18 06:14 Eos % (Auto) 3.0 % (0.0-4.0) 03/30/18 06:14 Baso % (Auto) 0.9 % (0.0-2.0) 03/30/18 06:14 Neut # (Auto) 4.5 K/uL (1.8-7.0) 03/30/18 06:14 Lymph # (Auto) 3.1 K/uL (1.0-4.3) 03/30/18 06:14 [place] # (Auto) 0.5 K/uL (0.0-0.8) 03/30/18 06:14 Eos # (Auto) 0.3 K/uL (0.0-0.7) 03/30/18 06:14 Baso # (Auto) 0.1 K/uL (0.0-0.2) 03/30/18 06:14 Sodium 139 mmol/L (132-148) 03/30/18 06:14 Potassium 4.1 mmol/L (3.6-5.2) 03/30/18 06:14 Chloride 103 mmol/L (98-107) 03/30/18 06:14 Carbon Dioxide 24 mmol/L (22-30) 03/30/18 06:14 Anion Gap 16 (10-20) 03/30/18 06:14 BUN 18 mg/dL (9-20) 03/30/18 06:14 Creatinine 0.7 mg/dL (0.8-1.5) L 03/30/18 06:14 Est GFR ( Amer) > 60 03/30/18 06:14 Est GFR (Non-Af Amer) > 60 03/30/18 06:14 POC Glucose (mg/dL) 172 mg/dL (65-110) H 03/30/18 05:54 Random Glucose 171 mg/dL (75-110) H 03/30/18 06:14 Hemoglobin A1c 11.9 % (4.2-6.5) H 03/29/18 06:38 Calcium 9.1 mg/dl (8.6-10.4) 03/30/18 06:14 Phosphorus 4.5 mg/dL (2.5-4.5) 03/30/18 06:14 Magnesium 1.4 mg/dL (1.6-2.3) L 03/30/18 06:14 Total Bilirubin 1.0 mg/dL (0.2-1.3) 03/30/18 06:14 AST 38 U/L (17-59) 03/30/18 06:14 ALT 30 U/L (21-72) 03/30/18 06:14 Alkaline Phosphatase 146 U/L (38-126) H 03/30/18 06:14 Total Protein 6.6 g/dL (6.3-8.3) 03/30/18 06:14 Albumin 3.9 g/dL (3.5-5.0) 03/30/18 06:14 Globulin 2.7 gm/dL (2.2-3.9) 03/30/18 06:14 Albumin/Globulin Ratio 1.4 (1.0-2.1) 03/30/18 06:14 Triglycerides 371 mg/dL (0-149) H 03/29/18 06:38 Cholesterol 151 mg/dL (0-199) 03/29/18 06:38 LDL Cholesterol Direct 71 mg/dL (0-129) 03/29/18 06:38 HDL Cholesterol 26 mg/dL (30-70) L 03/29/18 06:38 Homocysteine 8.0 umol/L (6.6-14.8) 03/29/18 06:38 Free T4 1.06 ng/dL (0.78-2.19) 03/29/18 06:38 TSH 3rd Generation 3.89 mIU/L (0.46-4.68) 03/29/18 06:38 Urine Color Yellow (YELLOW) 03/27/18 15:10 Urine Clarity Clear (Clear) 03/27/18 15:10 Urine pH 5.0 (5.0-8.0) 03/27/18 15:10 Ur Specific [place] 1.025 (1.003-1.030) 03/27/18 15:10 Urine Protein Negative mg/dL (NEGATIVE) 03/27/18 15:10 Urine Glucose (UA) 3+ mg/dL (Normal) H 03/27/18 15:10 Urine Ketones Trace mg/dL (NEGATIVE) 03/27/18 15:10 Urine Blood Negative (NEGATIVE) 03/27/18 15:10 Urine Nitrate Negative (NEGATIVE) 03/27/18 15:10 Urine Bilirubin Negative (NEGATIVE) 03/27/18 15:10 Urine Urobilinogen Normal mg/dL (0.2-1.0) 03/27/18 15:10 Ur Leukocyte Esterase Neg Nazario/uL (Negative) 03/27/18 15:10 Urine WBC (Auto) 1 /hpf (0-5) 03/27/18 15:10 Urine RBC (Auto) 1 /hpf (0-3) 03/27/18 15:10 Ur Squamous Epith Cells < 1 /hpf (0-5) 03/27/18 15:10 RPR Nonreactive (NONREACTIVE) 03/29/18 07:07 - Hospital Course Hospital Course: HPI: Patient is a 52 year old female with past medical history of HTN, DM2, hyperlipidemia, who presents to the ED with complaint of darkening vision. As per patient, patient was seen at his PMD, Dr. Kessler's office the day before he came to the ED. During the office encounter, patient was noted to have elevated glucose level and received Basaglar injection and left the office with prescription for insulin. Patient states that he did well post-office visit. However, patient started to experience darkening/blurry vision the next day when he got to his work, which he states he has been experiencing for a while now. Patient noted associated symptoms of headache but denies chest pain, SOB, palpitation, weakness, SOB and dizziness. During his stay, patient had a CT scan with the following results: Left occipital late acute/ early subacute infarction. Tiny foci of high attenuation the which petechial hemorrhage cannot be excluded Old right frontal lobe infarct which is new since the prior study. Areas of high attenuation within this for which hemorrhage cannot be excluded. Old infarcts in the right occipital and right posterior parietal lobes. Patient also had an MRI with the following results; Seen to better advantage is an acute left posterior cerebral artery infarct which does not exhibit any significant contrast enhancement at this time. . In addition, there is a predominantly chronic appearing infarct in the right superior frontal lobe near the vertex extending to the level of the lateral ventricle which exhibits some central irregular - curvilinear cortical surface contrast enhancement that suggests subacute to late phase infarct with some result in some mild enhancement. Note also that the at there is what probably represents some shine through artifact along the posterior margin of this infarct mimicking acute change. Chronic encephalomalacia also seen in the right posterior temporoparietal watershed zone consistent with an old infarct as well. There are a few chronic appearing lacunar type infarcts scattered about the periventricular/deep white matter as well as left cerebellar hemisphere. . No enhancing masses seen. Neurology was consulted and was medically optimized with no further treatment needed inpatient. Patient should follow up coagulation evaluation outpatient along with ophthalmology. This is only a brief summary of patient stay at hospital and should follow up full EMR for any further details needed. Patient was seen and examined at 9:55 AM Hospitalist Progress Note Currently upon FULL ROS: NO chest pain NO SOB/Cough NO abdominal pain NO n/v/d/c: normal bowel movement this morning NO burning pain with urination NO dysphagia/odynophagia NO lightheadedenss/dizziness NO paresthesias NO new changes in visioin NO new changes in hearing NO headache Exam: General: AAOX3, NAD HEENT: NCA, EOMI, PERRLA, Patient has Right Temporal Hemianopia, NO cervical/ supraclavicular/submandibular lymphadenopathy, NO pharyngeal erythema/exudate, Nasal Turbinates are nonerythematous/nonedematous, Oral Mucosa is moist Cardio: NS1 and NS2, NO M/R/G Resp: CTA B/L, NO R/R/W Right chest permacath GI: BSx4, Soft, NT, NO HSM, NO guarding/rebound tenderness Ext: Pulses are strong and equal in bilateral UE and LE, NO edema noted, capillary refills is 2 seconds on all toes Neuro: CN II through XII are grossly intact, 5/5 strength with flexion and extension bilateral UE and LE against resistence, 2/4 DTR bilateral UE and LE, Rhomberg is normal Assessments: 1). Left Occipital CVA 2). Prior Hx of CVA January 2017 3). HTN 4). DM [address] Mathews and patient ok from Neurology standpoint for discharge. Patient is stable from Medcine standpoint for discharge. The following instructions were explained to patient and a copy should be provided to him in Amharic for discharge: 1). Schedule appointment in the next 7 days with the [facility] located on [address] of [facility] by calling . This clinic will be your primary care location that will help you coordinate your health care, provide you with future prescriptions so that you may have them filled at your pharmacy and provide you will referrals to see the following specialists: Neurologist for your history of Stroke Opthalmologist for your difficulty with your eye sight In Room Dining Server to schedule Colonoscopy 3). Please have the following prescriptions filled at your pharmacy on your way from the hospital. These prescriptions are for 30 days only and future prescriptions must be obtained from the [facility]. You stated that you had the money to pay for them. Please use them as directed: Aspirin 81 mg, 1 tablet by mouth at 8 AM Plavix 75 mg, 1 tablet by mouth at 8 AM Glimepiride 4 mg, 1 tablet by mouth at 8 AM Metformin 1,000 mg, 1 tablet by mouth at 8 AM and 8 PM (breakfast and dinner) Januvia 100 mg, 1 tablet by mouth at 1 PM (lunch) Zestril 5 mg, 1 tablet by mouth at 8 AM Crestor 40 mg, 1 tablet by mouth at 8 PM 4). Please take care and be well. Discharge Exam - Head Exam Head Exam: ATRAUMATIC, NORMOCEPHALIC - Eye Exam Eye Exam: EOMI, Normal appearance - ENT Exam ENT Exam: Mucous Membranes Moist, Normal Exam - Respiratory Exam Respiratory Exam: NORMAL BREATHING PATTERN. absent: Chest Wall Tenderness, Rales, Rhonchi, Wheezes, Respiratory Distress - Cardiovascular Exam Cardiovascular Exam: +S1, +S2. absent: +S4, Systolic Murmur - GI/Abdominal Exam GI & Abdominal Exam: Normal Bowel Sounds, Soft. absent: Distended, Firm, Guarding, Tenderness - Extremities Exam Extremities exam: full ROM Additional comments: No calf tenderness present, no pedal edema, pt had strong pulses in all 4 extremities. - Back Exam Back exam: absent: CVA tenderness (L), CVA tenderness (R), muscle spasm, rash noted - Neurological Exam Neurological exam: Alert, CN II-XII Intact, Oriented x3, Reflexes Normal - Psychiatric Exam Psychiatric exam: Normal Affect, Normal Mood - Skin Skin Exam: Dry, Intact, Normal Color, Warm Discharge Plan - Discharge Medications Prescriptions: Aspirin [Aspirin Chewable] 81 mg PO DAILY #30 chew Clopidogrel [Plavix] 75 mg PO DAILY #30 tab Glimepiride [amaRYL] 4 mg PO DAILY #30 tab Lisinopril [Zestril] 5 mg PO DAILY #30 tab MetFORMIN [glucoPHAGE] 1,000 mg PO BID #60 tab Rosuvastatin Calcium [Crestor] 40 mg PO HS #30 tab SITagliptin [Januvia] 100 mg PO DAILY #30 tab - Follow Up Plan Condition: STABLE Disposition: HOME/ ROUTINE Instructions: Presbyopia and Refractive Errors, Sitagliptin, Stroke (DC), Diabetes Diet , Recovery After Stroke, Aspirin, Clopidogrel, Glimepiride, Lisinopril, Metformin, Rosuvastatin, Going Home on Blood Thinners , Diabetic Meal Planning Additional Instructions: The following instructions were explained to patient and a copy should be provided to him in Amharic for discharge: 1). Schedule appointment in the next 7 days with the [facility] located on [address] of [facility] by calling [phone]. This clinic will be your primary care location that will help you coordinate your health care, provide you with future prescriptions so that you may have them filled at your pharmacy and provide you will referrals to see the following specialists: Neurologist for your history of Stroke Opthalmologist for your difficulty with your eye sight In Room Dining Server to schedule Colonoscopy 2). Please have the following prescriptions filled at your pharmacy on your way from the hospital. These prescriptions are for 30 days only and future prescriptions must be obtained from the [facility]. You stated that you had the money to pay for them. Please use them as directed: Aspirin 81 mg, 1 tablet by mouth at 8 AM Plavix 75 mg, 1 tablet by mouth at 8 AM Glimepiride 4 mg, 1 tablet by mouth at 8 AM Metformin 1,000 mg, 1 tablet by mouth at 8 AM and 8 PM (breakfast and dinner) Januvia 100 mg, 1 tablet by mouth at 1 PM (lunch) Zestril 5 mg, 1 tablet by mouth at 8 AM Crestor 40 mg, 1 tablet by mouth at 8 PM 3). Please take care and be well. Referrals: Corbin Ching MD [Staff Provider] - Zuleyma Peterson MD [Staff Provider] - <Tomasz Buck - Last Filed: 03/30/18 18:41> Provider - Provider Date of Admission: 03/27/18 16:30 Attending physician: Tomasz Buck MD Hospital Course - Lab Results Lab Results: Most Recent Lab Values WBC 8.4 K/uL (4.8-10.8) 03/30/18 06:14 RBC 4.93 Mil/uL (4.40-5.90) 03/30/18 06:14 Hgb 15.6 g/dL (12.0-18.0) 03/30/18 06:14 Hct 43.7 % (35.0-51.0) 03/30/18 06:14 MCV 88.5 fL (80.0-94.0) 03/30/18 06:14 MCH 31.6 pg (27.0-31.0) H 03/30/18 06:14 MCHC 35.7 g/dL (33.0-37.0) 03/30/18 06:14 RDW 12.5 % (11.5-14.5) 03/30/18 06:14 Plt Count 224 K/uL (130-400) 03/30/18 06:14 MPV 9.2 fL (7.2-11.7) 03/30/18 06:14 Neut % (Auto) 53.9 % (50.0-75.0) 03/30/18 06:14 Lymph % (Auto) 36.6 % (20.0-40.0) 03/30/18 06:14 [place] % (Auto) 5.6 % (0.0-10.0) 03/30/18 06:14 Eos % (Auto) 3.0 % (0.0-4.0) 03/30/18 06:14 Baso % (Auto) 0.9 % (0.0-2.0) 03/30/18 06:14 Neut # (Auto) 4.5 K/uL (1.8-7.0) 03/30/18 06:14 Lymph # (Auto) 3.1 K/uL (1.0-4.3) 03/30/18 06:14 [place] # (Auto) 0.5 K/uL (0.0-0.8) 03/30/18 06:14 Eos # (Auto) 0.3 K/uL (0.0-0.7) 03/30/18 06:14 Baso # (Auto) 0.1 K/uL (0.0-0.2) 03/30/18 06:14 Sodium 139 mmol/L (132-148) 07/14/18 06:14 Potassium 4.1 mmol/L (3.6-5.2) 03/30/18 06:14 Chloride 103 mmol/L (98-107) 03/30/18 06:14 Carbon Dioxide 24 mmol/L (22-30) 03/30/18 06:14 Anion Gap 16 (10-20) 03/30/18 06:14 BUN 18 mg/dL (9-20) 03/30/18 06:14 Creatinine 0.7 mg/dL (0.8-1.5) L 03/30/18 06:14 Est GFR ( Amer) > 60 03/30/18 06:14 Est GFR (Non-Af Amer) > 60 03/30/18 06:14 POC Glucose (mg/dL) 172 mg/dL (65-110) H 03/30/18 05:54 Random Glucose 171 mg/dL (75-110) H 03/30/18 06:14 Hemoglobin A1c 11.9 % (4.2-6.5) H 03/29/18 06:38 Calcium 9.1 mg/dl (8.6-10.4) 03/30/18 06:14 Phosphorus 4.5 mg/dL (2.5-4.5) 03/30/18 06:14 Magnesium 1.4 mg/dL (1.6-2.3) L 03/30/18 06:14 Total Bilirubin 1.0 mg/dL (0.2-1.3) 03/30/18 06:14 AST 38 U/L (17-59) 03/30/18 06:14 ALT 30 U/L (21-72) 03/30/18 06:14 Alkaline Phosphatase 146 U/L (38-126) H 03/30/18 06:14 Total Protein 6.6 g/dL (6.3-8.3) 03/30/18 06:14 Albumin 3.9 g/dL (3.5-5.0) 03/30/18 06:14 Globulin 2.7 gm/dL (2.2-3.9) 03/30/18 06:14 Albumin/Globulin Ratio 1.4 (1.0-2.1) 03/30/18 06:14 Triglycerides 371 mg/dL (0-149) H 03/29/18 06:38 Cholesterol 151 mg/dL (0-199) 03/29/18 06:38 LDL Cholesterol Direct 71 mg/dL (0-129) 03/29/18 06:38 HDL Cholesterol 26 mg/dL (30-70) L 03/29/18 06:38 Homocysteine 8.0 umol/L (6.6-14.8) 03/29/18 06:38 Free T4 1.06 ng/dL (0.78-2.19) 03/29/18 06:38 TSH 3rd Generation 3.89 mIU/L (0.46-4.68) 03/29/18 06:38 Urine Color Yellow (YELLOW) 03/27/18 15:10 Urine Clarity Clear (Clear) 03/27/18 15:10 Urine pH 5.0 (5.0-8.0) 03/27/18 15:10 Ur Specific [place] 1.025 (1.003-1.030) 03/27/18 15:10 Urine Protein Negative mg/dL (NEGATIVE) 03/27/18 15:10 Urine Glucose (UA) 3+ mg/dL (Normal) H 03/27/18 15:10 Urine Ketones Trace mg/dL (NEGATIVE) 03/27/18 15:10 Urine Blood Negative (NEGATIVE) 03/27/18 15:10 Urine Nitrate Negative (NEGATIVE) 03/27/18 15:10 Urine Bilirubin Negative (NEGATIVE) 03/27/18 15:10 Urine Urobilinogen Normal mg/dL (0.2-1.0) 03/27/18 15:10 Ur Leukocyte Esterase Neg Nzaario/uL (Negative) 03/27/18 15:10 Urine WBC (Auto) 1 /hpf (0-5) 03/27/18 15:10 Urine RBC (Auto) 1 /hpf (0-3) 03/27/18 15:10 Ur Squamous Epith Cells < 1 /hpf (0-5) 03/27/18 15:10 RPR Nonreactive (NONREACTIVE) 03/29/18 07:07 Attending/Attestation - Attestation I have personally seen and examined this patient.: Yes I have fully participated in the care of the patient.: Yes I have reviewed all pertinent clinical information, including history, physical exam and plan: Yes
--- NOTE | 2018-03-30 16:51 | IP.NPCORE ---
Stroke Core Measure - CQM - Stroke Antithrombotic Prescribed: Yes Anticoagulation Prescribed for Atrial Flutter, Atrial Fibrillation and History of:: Not Applicable Statin prescribed: Yes
--- NOTE | 2018-03-31 15:46 | CARD ---
APPROVED REPORT Date of service: 03/28/2018 EXAM: Two-dimensional and M-mode echocardiogram with Doppler, color Doppler with contrast with bubble study Other Information Quality : GoodRhythm : INDICATION CVA/TIA Pre-Op M-Mode DIMENSIONS Left Atrium (MM)3.90 (2.5-4.0cm)IVSd1.21 (0.7-1.1cm) Aortic Root2.89 (2.2-3.7cm)LVDd4.45 (4.0-5.6cm) Aortic Cusp Exc.1.80 (1.5-2.0cm)PWd1.41 (0.7-1.1cm) FS (%) 43 %LVDs2.54 (2.0-3.8cm) LVEF (%)74 (>50%) Mitral Valve MV E Uhlwbjhv201.0cm/sMV A Nyrohhpe848.9cm/sE/A ratio0.7 TDI E/Lateral E'0.0E/Medial E'0.0 Tricuspid Valve TR Peak Ijvovxst10ld/sTR Peak Gr.[id number] <Conclusion> tds. poor window. normal size la,lv & ra rv. mild concentric vlh with normal lvef of 60-65%. lv diastolic dysfunction grade one. aortic,mitral,tv & pv grossly appears normal. can not exclude pfo.normal size aortic root. no pericardial effusion seen. clinical correlation/reid is recommnded.
[2018-04-01 11:55] LABS: CARDIOLIPIN AB (IGA) <11 APL (<=11)
== END 2018-03-30 11:40 | disposition home or self-care (01) | DRG 12 ==
LOC: C.ER 14:28 → C.9E 16:30 → C.6T 19:48
PROVIDERS: ADMIT Family Medicine; ATTEND Family Medicine
DX: I69.298 Other sequelae of other nontraumatic intracranial hemorrhage (principal); E11.65 Type 2 diabetes mellitus with hyperglycemia; D68.51 Activated protein C resistance; H54.7 Unspecified visual loss; I10 Essential (primary) hypertension; Z79.84 Long term (current) use of oral hypoglycemic drugs; E78.5 Hyperlipidemia, unspecified; H53.8 Other visual disturbances

== ENCOUNTER 2019-01-17 08:32 | Outpatient (CLI) | payer OTHER | END 2019-01-17 08:33 | disposition home or self-care (01) | LOC: C.PAT 08:32 | DX: H25.13 Age-related nuclear cataract, bilateral (principal) ==

== ENCOUNTER 2019-01-22 05:50 | Day surgery (SDC) | payer OTHER ==
[2019-01-22] MEDS ORDERED: Tropicamide 1% Opht SOLUTION OS SCH (06:00)
[2019-01-22] MEDS ORDERED: Lactated Ringer's 500 ML IV ONE ×2 (06:00→06:40)
[2019-01-22] MEDS ORDERED: Phenylephrine 2.5% Opht Soln OS SCH (06:00)
[2019-01-22] MEDS ORDERED: Cyclopentolate 1% Opth (2 ml) OS SCH (06:00)
[2019-01-22] MEDS ORDERED: Ketorolac Tromethamine 0.5% Opth Soln (3 ml) OS SCH (06:00)
[2019-01-22] MEDS ORDERED: Ciprofloxacin 0.3% OPTH SOLN OS SCH (06:00)
[2019-01-22] MEDS ORDERED: Povidone Iodine Ophthalmic 5% Soln ONE (07:18)
[2019-01-22] MEDS ORDERED: Carbachol 0.01% IO ONE (07:18)
[2019-01-22] MEDS ORDERED: Tobramycin/Dexamethasone OPHT OINT ONE (07:19)
[2019-01-22] MEDS ORDERED: Chondroitin/Hyaluronate Opth Syringe KIT (0.55 ml-0.5 ml) IO ONE (07:20)
[2019-01-22] MEDS ORDERED: Hyaluronidase Human, Recombi 150 U/ML VIAL ONE (07:20)
[2019-01-22] MEDS ORDERED: Lidocaine 2% MPF (5 ml) Inj ONE (07:21)
[2019-01-22] MEDS ORDERED: Midazolam 2 MG/2 ML VIAL ONE (07:57)
[2019-01-22 09:42] VITALS: BP 151/78; PULSE 79; RESP 19; TEMP 97.9; O2SAT 95
--- NOTE | 2019-01-22 12:29 | OP ---
PROCEDURE DATE: 01/22/2019 PREOPERATIVE DIAGNOSIS: Mature cataract, left eye. POSTOPERATIVE DIAGNOSIS: Mature cataract, left eye. OPERATIVE PROCEDURE: Phacoemulsification, left eye, insertion of posterior chamber lens implant. SURGEON: José Miguel Walls MD ANESTHESIA TYPE: Local with IV sedation. PROCEDURE: The patient was brought into the operating room, placed in supine position, prepped and draped in the usual fashion for ophthalmic surgery. Lid speculum was inserted, lids and exposing globe. A side-port incision was made superiorly and inferiorly with a disposable sharp blade. Anterior chamber was filled with Viscoat. A near clear corneal incision was made temporally with a 2.75-mm keratome. Capsulorrhexis was then performed with Utrata forceps. Hydrodissection carried out with balanced salt solution. Nucleus was phacoemulsified. Remaining cortical fragments were removed with a split irrigation and aspiration system. The capsular sac was filled with Provisc. A posterior chamber lens was then injected into the capsular sac and rotated into horizontal position. Provisc was aspirated out of the anterior chamber. The pupil was constricted with Miochol. The wound was found to be watertight. Topical Betadine, Timoptic, and TobraDex ointment and pressure patch were applied. The patient tolerated the procedure well. José Miguel Walls MD
== END 2019-01-22 09:48 | disposition home or self-care (01) ==
LOC: C.SDS 05:50
PROVIDERS: ATTEND Ophthalmology
DX: H25.9 Unspecified age-related cataract (principal); E11.9 Type 2 diabetes mellitus without complications; E78.00 Pure hypercholesterolemia, unspecified; Z86.73 Personal history of transient ischemic attack (TIA), and cerebral infarction without residual deficits; I10 Essential (primary) hypertension; Z79.84 Long term (current) use of oral hypoglycemic drugs; Z79.899 Other long term (current) drug therapy; Z79.82 Long term (current) use of aspirin; Z79.02 Long term (current) use of antithrombotics/antiplatelets
CPT/HCPCS: 66984; 82948; J2250; J3010; J3470; J7120; V2632